=== PATIENT | male | born 1960 | race Caucasian/White ===

== ENCOUNTER 2016-11-13 05:54 | Day surgery (SDC) | payer BC ==
[2016-11-10 09:14] VITALS: BMI 32.6
[~2016-11-13 05:54] MED LIST: LACTATED RINGERS 1,000 ML IV SCH; LIDOCAINE 1% 20 ML VIAL (10MG/ML) FOR IV START INTRADERMA PRN; SODIUM CHLORIDE 0.9% 1,000 ML IV SCH
[2016-11-13 06:23] VITALS: TEMP 97.8
[2016-11-13 06:30] LABS: Glucose,Whole Blood 151 mg/dL (75-99)
[2016-11-13 06:57] LABS: INR 2.6 (<1.1); Prothrombin Time 25.5 sec (9.0-12.0)
[2016-11-13 07:04] LABS: Anion Gap 11 mmol/L; Blood Urea Nitrogen 17 mg/dL (9-20); Calcium 9.8 mg/dL (8.4-10.2); Carbon Dioxide 22 mmol/L (22-30); Chloride 110 mmol/L (98-107); Glucose 152 mg/dL (74-99); Non-African American GFR(MDRD) >60 (>60 ml/min/1.73 sqM); Potassium 4.3 mmol/L (3.5-5.1); Sodium 143 mmol/L (137-145)
[2016-11-13 07:15] VITALS: RESP 16
[2016-11-13] MEDS ORDERED: KETOROLAC 30 MG/ML 1 ML VIAL ONE (07:20)
[2016-11-13] MEDS ORDERED: PROPOFOL 10 MG/ML 20 ML VIAL IV ONE (07:20)
[2016-11-13] MEDS ORDERED: LIDOCAINE 1% INJ 10MG/ML (20 ML MDV) ONE (07:20)
[2016-11-13] MEDS ORDERED: SODIUM CHLORIDE 0.9% 1,000 ML IV SCH (07:45)
[2016-11-13] MEDS ORDERED: NON-FORMULARY DRUG (Omega-3 Fatty Acids/Fish Oil [Fish Oil 1,000 Mg Softgel] 1 EACH) PO SCH (07:45)
[2016-11-13] MEDS ORDERED: SODIUM CHLORIDE 0.9% 500 ML IV ONE (07:47)
[2016-11-13] MEDS ORDERED: SODIUM CHLORIDE 0.9% 1,000 ML IV ONE (07:59)
[2016-11-13 08:10] VITALS: PULSE 65
--- NOTE | 2016-11-13 08:29 | ECHOT ---
DATE OF SERVICE: INDICATION: Evaluation of left atrial appendage. PROCEDURE: After explaining the procedure to the patient as well as risks and complications, his blood pressure, heart rate, O2 saturation was monitored. The throat was sprayed with Cetacaine. He received sedation per Anesthesia Department. The probe was introduced into the esophagus without difficulty. There was no immediate complication. FINDINGS: The left atrial size is mildly dilated. The left atrial appendage is normal. Left ventricular size is normal. There is evidence of global hypokinesis. The estimated ejection fraction is 35% to 40% with global hypokinesis. The aortic valve, mitral valve and tricuspid valve are normal. Descending thoracic aorta appears to be normal. There was no pericardial effusion. Contrast bubble study revealed no evidence of shunting across the interatrial septum. Doppler pulse wave obtained and revealed a mild to moderate mitral and tricuspid regurgitation. There was no shunting by color Doppler study. CONCLUSION: 1. Mildly dilated left atrium with normal appearance of left atrial appendage. 2. Normal left ventricular size was severe global hypokinesis. 3. Mild to moderate mitral and tricuspid regurgitation. 4. No shunting across the interatrial septum.
[2016-11-13] MEDS ORDERED: LISINOPRIL 20 MG TAB PO SCH (09:00)
[2016-11-13] MEDS ORDERED: METOPROLOL TARTRATE 25 MG TAB PO SCH (09:00)
[2016-11-13] MEDS ORDERED: ATORVASTATIN 10 MG TAB PO SCH (09:00)
[2016-11-13] MEDS ORDERED: ASPIRIN 81 MG CHEW PO SCH (09:00)
[2016-11-13] MEDS ORDERED: metFORMIN 500 MG TAB PO SCH (09:00)
[2016-11-13] MEDS ORDERED: amLODIPine 5 MG TAB PO SCH (09:00)
[2016-11-13 09:42] VITALS: BP 148/78
--- NOTE | 2016-11-13 10:27 | CE ---
DATE OF SERVICE: PROCEDURE: After explaining the procedure to the patient as well as risks and complications and after obtaining sedation state per Anesthesia Department, performed transesophageal echogram and cardioversion using 200 synchronized biphasic joules. Cardioversion was performed with episcopal of normal sinus rhythm. There was no immediate complication.
[2016-11-13] MEDS ORDERED: WARFARIN 7.5 MG TAB PO SCH (18:00)
[2016-11-14] MEDS ORDERED: ASCORBIC ACID 500 MG TAB PO SCH (12:00)
[2016-11-14] MEDS ORDERED: MULTIVITAMINS, THERA 1 EACH TAB PO SCH (12:00)
== END 2016-11-13 09:15 | disposition home or self-care (01) ==
LOC: CATHCVL 05:54
PROVIDERS: ATTEND Internal Medicine Interventional Cardiology
DX: I25.10 Atherosclerotic heart disease of native coronary artery without angina pectoris (principal); I48.1 Persistent atrial fibrillation; I10 Essential (primary) hypertension; I25.5 Ischemic cardiomyopathy; E78.2 Mixed hyperlipidemia; E11.9 Type 2 diabetes mellitus without complications; I34.0 Nonrheumatic mitral (valve) insufficiency; I36.1 Nonrheumatic tricuspid (valve) insufficiency; Z79.01 Long term (current) use of anticoagulants; Z79.84 Long term (current) use of oral hypoglycemic drugs; Z79.82 Long term (current) use of aspirin; Z79.899 Other long term (current) drug therapy; Z95.5 Presence of coronary angioplasty implant and graft; Z82.49 Family history of ischemic heart disease and other diseases of the circulatory system
CPT/HCPCS: 93312; 93320; 93005; 93325; 92960; 80048; 85610; J2001; J1885; J2704

== ENCOUNTER → 2017-09-25 | Outpatient (CLI) | payer BC ==
--- NOTE | 2017-09-25 15:29 | CONS ---
CONSULTATION REASON FOR EVALUATION: Atrial fibrillation, possible DALTON. 57-year-old male patient, referred to me for DALTON evaluation. The patient is having episodes with issues with paroxysmal atrial fibrillation. The patient has had a few episodes and he has required cardioversion and he is currently in sinus rhythm. As part of his workup, sleep apnea was also considered. He snores and occasionally quits breathing. However, he denies having any significant hypersomnia or sleepiness during the day. He has been told to snore and quit breathing by his . He goes to bed around 10:30 pm, wakes up 6:30 am in the morning. He feels refreshed. His current Protem score is a 5. Weight has been stable at 235 pounds. No alcoholism and drinks 1-3 glasses of wine at nighttime. No other complaints otherwise. PAST MEDICAL HISTORY: 1. Paroxysmal atrial fibrillation. 2. Hypertension. 3. Hyperlipidemia. PAST SURGICAL HISTORY: Includes cardioversion, cardiac catheterization and insertion of coronary stent. DRUG ALLERGIES: Not known. OUTPATIENT MEDICATION LIST: Includes metformin 1000 mg daily, Coumadin 5 mg p.o. daily, aspirin 81 mg p.o. daily, metoprolol 25 mg p.o. daily, lisinopril 20 mg p.o. daily, amlodipine 5 mg p.o. per day, Lipitor 10 mg p.o. daily. SOCIAL HISTORY: The patient is a nonsmoker. No history of alcohol. No history of IV drugs. 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 FAMILY HISTORY: Negative for sleep apnea. REVIEW OF SYSTEMS: 12-point review of system was done. The patient denies having excessive fatigue or sleepiness. No insomnia. No choking. No nocturia. No grinding of the teeth. No dry mouth. No anxiety or panic attacks. No palpitations. No heartburn. No depression. No sweating. No sleep talking. No restlessness lower extremities. No chronic pain. He sleeps on a sidewise body position. He does not watch a TV in his bedroom. He does not take naps on a regular basis. Sometimes takes a nap between 530-630 p.m. at night. His weight has been stable. He has never been involved in a motor vehicle accidents because of feeling sleepy or drowsy. PHYSICAL EXAMINATION: BP is 142/80, pulse 61, respirations 16, temperature 97.3, saturation 98% on room air. Weight is 235, height is 5 feet 10 inches and Protem score of 5. Neck size 18 inches. BMI 33.7. GENERAL APPEARANCE: Calm, comfortable. HEENT is atraumatic, normocephalic. NECK: Supple. There is no JVD. No goiter or neck masses. Slight overbite with Mallampati class III. LUNGS: Clear to auscultation. HEART: Sounds are regular rate and rhythm. Normal S1, S2. No S3, S4. No murmurs. ABDOMEN: Soft and nontender. EXTREMITIES: No edema. No cyanosis or clubbing. NEUROLOGICALLY: The patient is alert and oriented x3. There is no focal neurological deficits. PSYCHIATRICALLY: The patient has appropriate mood and affect. SKIN: Negative for any wounds or cellulitis. IMPRESSION: 1. Paroxysmal atrial fibrillation currently in normal sinus rhythm. 2. Snoring with occasional witnessed apneas rule out underlying obstructive sleep apnea. Although the clinical suspicion is low based on his overall symptomatology. 3. Coronary artery disease. 4. Hypertension. 5. Hyperlipidemia. 6. BMI 33.7. PLAN: 1. Encourage weight loss. 2. Proceed with a sleep study looking for any significant sleep breathing disorder contributing to his atrial fibrillation and based on that, we will make further recommendations if treatment is needed. MMODL / IJN: [id number] /
== END | disposition home or self-care (01) ==
LOC: SLEEP 12:37
PROVIDERS: ATTEND Internal Medicine Critical Care Medicine
DX: R06.83 Snoring (principal); I48.0 Paroxysmal atrial fibrillation; I25.10 Atherosclerotic heart disease of native coronary artery without angina pectoris; I10 Essential (primary) hypertension; E78.5 Hyperlipidemia, unspecified; Z95.5 Presence of coronary angioplasty implant and graft; Z79.1 Long term (current) use of non-steroidal anti-inflammatories (NSAID); Z79.82 Long term (current) use of aspirin; Z79.84 Long term (current) use of oral hypoglycemic drugs; Z79.899 Other long term (current) drug therapy; Z88.8 Allergy status to other drugs, medicaments and biological substances
CPT/HCPCS: 99211

== ENCOUNTER → 2018-11-25 | Outpatient (CLI) | payer BC ==
--- NOTE | 2018-11-25 09:50 | US ---
EXAMINATION TYPE: US kidneys/renal and bladder DATE OF EXAM: 11/25/2018 COMPARISON: NONE CLINICAL HISTORY: N13.30 Unspecified hydronephrosis,R93.4 History of hydraneph. Hx of renal stones wi th breakage per patient. No current pain. EXAM MEASUREMENTS: Right Kidney: 11.4 x 5.7 x 6.0 cm Left Kidney: 12.9 x 5.4 x 6.0 cm Right Kidney: No hydronephrosis or masses seen, prominent column of trixie Left Kidney: No hydronephrosis or masses seen Bladder: Incompletely distended Bilateral Jets not seen There is no evidence for hydronephrosis at this point in time. No nephrolithiasis is seen. No lacie s are identified. The urinary bladder is anechoic. Bilateral ureteral jets are not centimeter seen. IMPRESSION: No hydronephrosis or nephrolithiasis.
== END | disposition home or self-care (01) ==
LOC: RADUSWWP 08:58
PROVIDERS: ATTEND Urology
DX: Z09 Encounter for follow-up examination after completed treatment for conditions other than malignant neoplasm (principal); Z87.448 Personal history of other diseases of urinary system
CPT/HCPCS: 76770

== ENCOUNTER 2022-02-20 10:03 | Inpatient (IN) | payer BC ==
[2022-02-20] MEDS ORDERED: SODIUM CHLORIDE 0.9% 1,000 ML IV STA (10:20)
[2022-02-20] MEDS ORDERED: ACETAMINOPHEN TAB 325 MG TAB PO STA (10:20)
[2022-02-20] MEDS ORDERED: ONDANSETRON 4 MG/2 ML VIAL IVP STA (10:21)
--- NOTE | 2022-02-20 10:24 | ED ---
General Adult HPI - General Chief complaint: Fever Stated complaint: kidney stones,fever Time Seen by Provider: 02/20/22 10:15 Source: patient, family, RN notes reviewed, old records reviewed Mode of arrival: ambulatory Limitations: no limitations - History of Present Illness Initial comments: This is a well-appearing 61-year-old male that presents to the emergency room with family complaining of left flank pain, fever and nausea after being diagnosed with a 7 mm kidney stone at [facility] in [place]. States he had a CT scan done there and was given norco and flomax and was instructed to follow-up with Dr. Crabtree but could not get in today. He called the office due to fever for the past 2 days was recommended to come to the emergency room. -: days(s) (4) Location: left (flank) Associated Symptoms: fever/chills, nausea/vomiting (no vomiting) Treatments Prior to Arrival: other (tylenol 5am) - Related Data Home Medications Medication Instructions Recorded Confirmed amLODIPine [Norvasc] 5 mg PO DAILY 11/10/16 02/20/22 lisinopriL [Zestril] 20 mg PO DAILY 11/10/16 02/20/22 Atorvastatin [Lipitor] 80 mg PO HS 02/20/22 02/20/22 HYDROcodone/APAP 5-325MG [[place] 1 tab PO Q8H PRN 02/20/22 02/20/22 5-325] Eleno's Leg Cramps 1 tab PO HS 02/20/22 02/20/22 Ketorolac Tromethamine 10 mg PO Q8H PRN 02/20/22 02/20/22 Metoprolol Tartrate [Lopressor] 50 mg PO BID 02/20/22 02/20/22 Tamsulosin [Flomax] 0.4 mg PO DAILY 02/20/22 02/20/22 Warfarin Sodium 6 mg PO DAILY 02/20/22 02/20/22 Warfarin [Coumadin] 1 mg PO DAILY 02/20/22 02/20/22 metFORMIN HCL 1,000 mg PO BID 02/20/22 02/20/22 Allergies Allergy/AdvReac Type Severity Reaction Status Date / Time No Known Allergies Allergy Verified 02/20/22 12:49 Review of Systems ROS Statement: Those systems with pertinent positive or pertinent negative responses have been documented in the HPI. ROS Other: All systems not noted in ROS Statement are negative. Past Medical History Past Medical History: Atrial Fibrillation, Coronary Artery Disease (CAD), Diabetes Mellitus, Hypertension, Osteoarthritis (OA) Additional Past Medical History / Comment(s): kidney stones History of Any Multi-Drug Resistant Organisms: None Reported Past Surgical History: Heart Catheterization With Stent Additional Past Surgical History / Comment(s): Colonoscopy Past Anesthesia/Blood Transfusion Reactions: No Reported Reaction Date of Last Stent Placement:: 2012 Past Psychological History: No Psychological Hx Reported Smoking Status: Former smoker Past Alcohol Use History: Occasional Past Drug Use History: None Reported - Past Family History Mother Family Medical History: No Reported History Father Family Medical History: Coronary Artery Disease (CAD) General Exam Limitations: no limitations General appearance: alert, in no apparent distress Head exam: Present: atraumatic Eye exam: Present: normal appearance. Absent: scleral icterus, conjunctival injection Neck exam: Present: normal inspection. Absent: tenderness, meningismus, lymphad enopathy Respiratory exam: Present: normal lung sounds bilaterally. Absent: respiratory distress, accessory muscle use Cardiovascular Exam: Present: tachycardia GI/Abdominal exam: Present: soft. Absent: distended, tenderness, guarding, rebound, rigid exam: Present: normal inspection, vertical testicular lie, circumcision. Absent: testicular tenderness, urethral discharge, scrotal swelling External exam: Absent: erythema, swelling, lesions Extremities exam: Present: normal capillary refill. Absent: pedal edema Back exam: Present: normal inspection, full ROM. Absent: tenderness, CVA tenderness (R), CVA tenderness (L), rash noted Neurological exam: Present: alert, oriented X3 Skin exam: Present: warm, dry, normal color. Absent: cyanosis, diaphoretic, petechiae, pallor Course Vital Signs 02/20/22 02/20/22 10:10 12:22 Temperature 101.8 F H 99.8 F H Pulse Rate 105 H 100 Respiratory 18 Rate Blood Pressure 155/77 O2 Sat by Pulse 96 Oximetry Medical Decision Making - Medical Decision Making Ultrasound of the kidneys and bladder show left-sided hydronephrosis. No stone seen. Patient is febrile with leukocytosis. Sodium is 129, he was given IV fluids. BUN and creatinine elevated. KUB x-ray shows no evidence of renal calculus. There is a nonspecific bowel gas pattern with no evidence of acute process or obstruction. Fecal matter and gas throughout the colon with nonspecific dilated bowel loops. Patient will be admitted with pyelonephritis, hydronephrosis, and acute kidney injury. Did speak with Dr. Crabtree who recommends CT and patient be admitted to medicine with him on consult. Patient agreeable to this plan. is also requesting he be tested for coronavirus, states that he has altered sense of smell for the past 10 days. Case discussed with Dr. Allan - Lab Data Result diagrams: 02/20/22 10:26 02/20/22 10:26 Lab Results 02/20/22 02/20/22 02/20/22 Range/Units 10:26 10: 10:26 WBC 15.5 H (3.8-10.6) k/uL RBC 4.59 (4.30-5.90) m/uL Hgb 14.6 (13.0-17.5) gm/dL Hct 42.5 (39.0-53.0) % MCV 92.6 (80.0-100.0) fL MCH 31.8 (25.0-35.0) pg MCHC 34.3 (31.0-37.0) g/dL RDW 12.5 (11.5-15.5) % Plt Count 115 L (150-450) k/uL MPV 9.1 Neutrophils % 91 % Lymphocytes % 2 % Monocytes % 6 % Eosinophils % 0 % Basophils % 0 % Neutrophils # 14.0 H (1.3-7.7) k/uL Lymphocytes # 0.2 L (1.0-4.8) k/uL Monocytes # 0.9 (0-1.0) k/uL Eosinophils # 0.1 (0-0.7) k/uL Basophils # 0.0 (0-0.2) k/uL Sodium 129 L (137-145) mmol/L Potassium 4.1 (3.5-5.1) mmol/L Chloride 95 L (98-107) mmol/L Carbon Dioxide 21 L (22-30) mmol/L Anion Gap 13 mmol/L BUN 26 H (9-20) mg/dL Creatinine 1.62 H (0.66-1.25) mg/dL Est GFR (CKD-EPI)AfAm 51 (>60 ml/min/1.73 sqM) Est GFR (CKD-EPI)NonAf 45 (>60 ml/min/1.73 sqM) Glucose 298 H (74-99) mg/dL Plasma Lactic Acid Dave (0.7-2.0) mmol/L Calcium 8.4 (8.4-10.2) mg/dL Total Bilirubin 1.2 (0.2-1.3) mg/dL AST 19 (17-59) U/L ALT 21 (4-49) U/L Alkaline Phosphatase 93 (38-126) U/L Total Protein 6.6 (6.3-8.2) g/dL Albumin 4.1 (3.5-5.0) g/dL Urine Color Yellow Urine Appearance Clear (Clear) Urine pH 5.5 (5.0-8.0) Ur Specific [place] 1.030 (1.001-1.035) Urine Protein 1+ H (Negative) Urine Glucose (UA) 4+ H (Negative) Urine Ketones 1+ H (Negative) Urine Blood Small H (Negative) Urine Nitrite Negative (Negative) Urine Bilirubin Negative (Negative) Urine Urobilinogen <2.0 (<2.0) mg/dL Ur Leukocyte Esterase Negative (Negative) Urine RBC 2 (0-5) /hpf Urine WBC 5 (0-5) /hpf Urine Mucus Rare H (None) /hpf 02/20/22 Range/Units 10:35 WBC (3.8-10.6) k/uL RBC (4.30-5.90) m/uL Hgb (13.0-17.5) gm/dL Hct (39.0-53.0) % MCV (80.0-100.0) fL MCH (25.0-35.0) pg MCHC (31.0-37.0) g/dL RDW (11.5-15.5) % Plt Count (150-450) k/uL MPV Neutrophils % % Lymphocytes % % Monocytes % % Eosinophils % % Basophils % % Neutrophils # (1.3-7.7) k/uL Lymphocytes # (1.0-4.8) k/uL Monocytes # (0-1.0) k/uL Eosinophils # (0-0.7) k/uL Basophils # (0-0.2) k/uL Sodium (137-145) mmol/L Potassium (3.5-5.1) mmol/L Chloride (98-107) mmol/L Carbon Dioxide (22-30) mmol/L Anion Gap mmol/L BUN (9-20) mg/dL Creatinine (0.66-1.25) mg/dL Est GFR (CKD-EPI)AfAm (>60 ml/min/1.73 sqM) Est GFR (CKD-EPI)NonAf (>60 ml/min/1.73 sqM) Glucose (74-99) mg/dL Plasma Lactic Acid Dave 1.5 (0.7-2.0) mmol/L Calcium (8.4-10.2) mg/dL Total Bilirubin (0.2-1.3) mg/dL AST (17-59) U/L ALT (4-49) U/L Alkaline Phosphatase (38-126) U/L Total Protein (6.3-8.2) g/dL Albumin (3.5-5.0) g/dL Urine Color Urine Appearance (Clear) Urine pH (5.0-8.0) Ur Specific [place] (1.001-1.035) Urine Protein (Negative) Urine Glucose (UA) (Negative) Urine Ketones (Negative) Urine Blood (Negative) Urine Nitrite (Negative) Urine Bilirubin (Negative) Urine Urobilinogen (<2.0) mg/dL Ur Leukocyte Esterase (Negative) Urine RBC (0-5) /hpf Urine WBC (0-5) /hpf Urine Mucus (None) /hpf Disposition Clinical Impression: JORGE L (acute kidney injury), Hydronephrosis, Pyelonephritis of left kidney Disposition: ADMITTED IP TO THIS HOSP Condition: Good Decision Date: 02/20/22 Decision Time: 12:06
[2022-02-20] MEDS ORDERED: cefTRIAXone IN SWFI 1,000 MG/10 ML SYRINGE IVP STA (10:32)
[2022-02-20 10:50] LABS: Appearance,Urine Clear (Clear); Bilirubin,Urine Negative (Negative); Blood,Urine Small (Negative); Color,Urine Yellow; Glucose,Urine (UA) 4+ (Negative); Ketones,Urine 1+ (Negative); Leukocyte Esterase,Urine Negative (Negative); Mucus,Urine Rare /hpf; Nitrite,Urine Negative (Negative); PH, Urine 5.5 (5.0-8.0); Protein,Urine 1+ (Negative); RBC,Urine 2 /hpf (0-5); Urobilinogen,Urine <2.0 mg/dL (<2.0); WBC,Urine 5 /hpf (0-5)
--- NOTE | 2022-02-20 11:06 | US ---
EXAMINATION TYPE: US kidneys/renal and bladder DATE OF EXAM: 02/20/2022 COMPARISON: Ultrasound 11/25/2018 CLINICAL HISTORY: Obstructive kidney stone left. known left renal stone, gross hematuria last week, p ain stopped this weekend but fever started today EXAM MEASUREMENTS: Right Kidney: 13.4 x 5.1 x 6.3 cm Left Kidney: 13.9 x 5.9 x 7.0 cm Right Kidney: No hydronephrosis or masses seen, larger in size Left Kidney: hydronephrosis seen, stone was not seen during scan, large in size Bladder: not distended IMPRESSION: 1. Left hydronephrosis 2. No evidence of right-sided hydronephrosis.
[2022-02-20 11:07] LABS: Basophils % (A) 0 %; Eosinophils # (A) 0.1 k/uL (0-0.7); Eosinophils % (A) 0 %; HCT 42.5 % (39.0-53.0); HGB 14.6 gm/dL (13.0-17.5); Lymphocytes # (A) 0.2 k/uL (1.0-4.8); Lymphocytes % (A) 2 %; MCH 31.8 pg (25.0-35.0); MCHC 34.3 g/dL (31.0-37.0); MCV 92.6 fL (80.0-100.0); Mean Platelet Volume 9.1; Monocytes # (A) 0.9 k/uL (0-1.0); Monocytes % (A) 6 %; Neutrophils % (A) 91 %; Platelet Count 115 k/uL (150-450); RBC 4.59 m/uL (4.30-5.90); RDW 12.5 % (11.5-15.5); WBC 15.5 k/uL (3.8-10.6)
[2022-02-20 11:14] LABS: Albumin 4.1 g/dL (3.5-5.0); Calcium 8.4 mg/dL (8.4-10.2); Potassium 4.1 mmol/L (3.5-5.1); Total Bilirubin 1.2 mg/dL (0.2-1.3); Total Protein 6.6 g/dL (6.3-8.2)
--- NOTE | 2022-02-20 12:07 | XR ---
EXAMINATION TYPE: XR KUB DATE OF EXAM: 02/20/2022 11:59 AM INDICATION: Patient age:Male; 61 years old; Reason for study: kidney stone; [facility]. COMPARISON: None TECHNIQUE: One radiographic view of the abdomen was obtained. FINDINGS: The bowel gas pattern is nonspecific without dilated loops of small or large bowel. There i s no evidence for organomegaly or pneumoperitoneum. The osseous structures are intact. No abnormal calcifications are present. Fecal material and gas are demonstrated throughout the colon and rectum. IMPRESSION: 1. No evidence for renal calculus. 2. Nonspecific bowel gas pattern without radiographic evidence for acute process.
[2022-02-20] MEDS ORDERED: HYDROcodone/APAP 5-325MG 1 EACH TAB PO PRN (12:34)
[2022-02-20] MEDS ORDERED: NALOXONE 0.4 MG/ML 1 ML VIAL IV PRN (12:34)
[2022-02-20] MEDS: SODIUM CHLORIDE 0.9% 1,000 ML IV SCH ×2 (12:58→19:43)
[2022-02-20 14:11] LABS: INR 1.5 (<1.2); Prothrombin Time 15.1 sec (9.0-12.0)
--- NOTE | 2022-02-20 14:42 | CT ---
EXAMINATION TYPE: CT abdomen pelvis wo con DATE OF EXAM: 02/20/2022 COMPARISON: None HISTORY: Kidney stones, fever CT DLP: 841.4 mGycm Examination of the solid and hollow viscera is limited given the lack of contrast. FINDINGS: LUNG BASES: No evidence for nodule. No evidence for infiltrate. LIVER/GB: The gallbladder is unremarkable. No space-occupying hepatic lesion. PANCREAS: No pancreatic mass identified. No inflammatory process seen. SPLEEN: No evidence for splenomegaly. No intrasplenic lesions seen. ADRENALS: No adrenal nodules identified. No evidence for thickening. KIDNEYS: Moderate left-sided hydroureteronephrosis secondary to a 4.5 mm left ureteral calculus at th e left mid sacral level. Mild left renal edema and perinephric stranding. Underlying infection is dif ficult to exclude. 3 mm nonobstructing calculus mid to lower pole right kidney. BOWEL: Appendix has a normal appearance. No evidence of bowel obstruction. No inflammatory process. M oderate sigmoid diverticulosis without diverticulitis. Lymph nodes: No evidence for adenopathy greater than 1 cm. Abdominal aorta: Atheromatous changes seen. No evidence for aneurysm. Genital organs: No significant abnormality. Other: No significant abnormality. IMPRESSION: Moderate left-sided hydroureteronephrosis secondary to a 4.5 mm left ureteral calculus at the left mi d sacral level. Mild left renal edema and perinephric stranding. Underlying infection is difficult to exclude.
[2022-02-20 16:19] LABS: Glucose,Whole Blood 204 mg/dL (70-110)
[2022-02-20] MEDS ORDERED: LACTATED RINGERS 1,000 ML IV ONE (16:19)
[2022-02-20] MEDS ORDERED: fentaNYL (PF) 50 MCG/ML 2 ML AMP ONE (16:24)
[2022-02-20] MEDS ORDERED: MIDAZOLAM 2 MG/2 ML VIAL ONE (16:24)
[2022-02-20] MEDS ORDERED: LIDOCAINE 2% INJ 20 MG/ML (2 ML VIAL) ONE (16:24)
[2022-02-20] MEDS ORDERED: PROPOFOL 10 MG/ML 20 ML VIAL IV ONE (16:24)
[2022-02-20] MEDS ORDERED: SUCCINYLCHOLINE CHLORIDE 200 MG/10 ML VIAL IV ONE (16:24)
--- NOTE | 2022-02-20 16:29 | P.GSCN ---
History of Present Illness Consult date: 02/20/22 History of present illness: 61 yo male with a history of stones. Was in [facility] er with an apparent 7 mm left ureteral stone. He was discharged back tp PH He has had fever. He wonders whether he has COVID. His urine doesnt look infected but he is febrile. He is admitted for IVF , ab and gu consultation. He had an us that showed hydro but the kub didnt show a distinct stone. I ordered a ct scan which showed a 7 mm distal obstructing stone. Review of Systems All systems: negative - Constitutional Denies fever, Denies weight loss - EENT Eyes: denies blurred vision Ears, nose, mouth and throat: Denies dysphagia - Cardiovascular Denies chest pain, Denies shortness of breath - Respiratory Denies cough, Denies 7 - Gastrointestinal Reports as per HPI - Genitourinary Denies dysuria, Denies hematuria - Integumentary Denies rash, Denies unusual bruising - Neurological Denies headaches, Denies syncope - Hematologic/Lymphatic Denies easy bleeding, Denies easy bruising Past Medical History Past Medical History: Atrial Fibrillation, Coronary Artery Disease (CAD), Diabetes Mellitus, Hypertension, Osteoarthritis (OA) Additional Past Medical History / Comment(s): kidney stones History of Any Multi-Drug Resistant Organisms: None Reported Past Surgical History: Heart Catheterization With Stent Additional Past Surgical History / Comment(s): Colonoscopy Past Anesthesia/Blood Transfusion Reactions: No Reported Reaction Date of Last Stent Placement:: 2012 Past Psychological History: No Psychological Hx Reported Smoking Status: Former smoker Past Alcohol Use History: Occasional Past Drug Use History: None Reported - Past Family History Mother Family Medical History: No Reported History Father Family Medical History: Coronary Artery Disease (CAD) Medications and Allergies Home Medications Medication Instructions Recorded Confirmed Type amLODIPine [Norvasc] 5 mg PO DAILY 11/10/16 02/20/22 History lisinopriL [Zestril] 20 mg PO DAILY 11/10/16 02/20/22 History Atorvastatin [Lipitor] 80 mg PO HS 02/20/22 02/20/22 History HYDROcodone/APAP 5-325MG [[place] 1 tab PO Q8H PRN 02/20/22 02/20/22 History 5-325] Eleno's Leg Cramps 1 tab PO HS 02/20/22 02/20/22 History Ketorolac Tromethamine 10 mg PO Q8H PRN 02/20/22 02/20/22 History Metoprolol Tartrate [Lopressor] 50 mg PO BID 02/20/22 02/20/22 History Tamsulosin [Flomax] 0.4 mg PO DAILY 02/20/22 02/20/22 History Warfarin Sodium 6 mg PO DAILY 02/20/22 02/20/22 History Warfarin [Coumadin] 1 mg PO DAILY 02/20/22 02/20/22 History metFORMIN HCL 1,000 mg PO BID 02/20/22 02/20/22 History Allergies Allergy/AdvReac Type Severity Reaction Status Date / Time No Known Allergies Allergy Verified 02/20/22 12:49 Surgical - Exam Vital Signs Temp Pulse Resp BP Pulse Ox 101.8 F H 105 H 18 155/77 96 02/20/22 10:10 02/20/22 10:10 02/20/22 10:10 02/20/22 10:10 02/20/22 10:10 - General well developed, well nourished, moderate distress - Eyes PERRL - ENT no hearing loss - Neck trachea midline - Respiratory normal expansion, normal respiratory effort - Cardiovascular tachycardic Rhythm: regular - Abdomen Abdomen: soft, non tender - Genitourinary normal penis with no external lesions, testicles present - Integumentary no rash, no growths - Neurologic normal sensation - Musculoskeletal normal posture - Psychiatric oriented to time, oriented to person, oriented to place, speech is normal, me roman intact Results - Labs 02/20/22 10:26 02/20/22 10:26 Abnormal Lab Results - Last 24 Hours (Table) 02/20/22 02/20/22 02/20/22 Range/Units 10:26 10:26 10:26 WBC 15.5 H (3.8-10.6) k/uL Plt Count 115 L (150-450) k/uL Neutrophils # 14.0 H (1.3-7.7) k/uL Lymphocytes # 0.2 L (1.0-4.8) k/uL Sodium 129 L (137-145) mmol/L Chloride 95 L (98-107) mmol/L Carbon Dioxide 21 L (22-30) mmol/L BUN 26 H (9-20) mg/dL Creatinine 1.62 H (0.66-1.25) mg/dL Glucose 298 H (74-99) mg/dL Urine Protein 1+ H (Negative) Urine Glucose (UA) 4+ H (Negative) Urine Ketones 1+ H (Negative) Urine Blood Small H (Negative) Urine Mucus Rare H (None) /hpf Diabetes panel 02/20/22 Range/Units 10:26 Sodium 129 L (137-145) mmol/L Potassium 4.1 (3.5-5.1) mmol/L Chloride 95 L (98-107) mmol/L Carbon Dioxide 21 L (22-30) mmol/L BUN 26 H (9-20) mg/dL Creatinine 1.62 H (0.66-1.25) mg/dL Glucose 298 H (74-99) mg/dL Calcium 8.4 (8.4-10.2) mg/dL AST 19 (17-59) U/L ALT 21 (4-49) U/L Alkaline Phosphatase 93 (38-126) U/L Total Protein 6.6 (6.3-8.2) g/dL Albumin 4.1 (3.5-5.0) g/dL Calcium panel 02/20/22 Range/Units 10:26 Calcium 8.4 (8.4-10.2) mg/dL Albumin 4.1 (3.5-5.0) g/dL Pituitary panel 02/20/22 Range/Units 10:26 Sodium 129 L (137-145) mmol/L Potassium 4.1 (3.5-5.1) mmol/L Chloride 95 L (98-107) mmol/L Carbon Dioxide 21 L (22-30) mmol/L BUN 26 H (9-20) mg/dL Creatinine 1.62 H (0.66-1.25) mg/dL Glucose 298 H (74-99) mg/dL Calcium 8.4 (8.4-10.2) mg/dL Adrenal panel 02/20/22 Range/Units 10:26 Sodium 129 L (137-145) mmol/L Potassium 4.1 (3.5-5.1) mmol/L Chloride 95 L (98-107) mmol/L Carbon Dioxide 21 L (22-30) mmol/L BUN 26 H (9-20) mg/dL Creatinine 1.62 H (0.66-1.25) mg/dL Glucose 298 H (74-99) mg/dL Calcium 8.4 (8.4-10.2) mg/dL Total Bilirubin 1.2 (0.2-1.3) mg/dL AST 19 (17-59) U/L ALT 21 (4-49) U/L Alkaline Phosphatase 93 (38-126) U/L Total Protein 6.6 (6.3-8.2) g/dL Albumin 4.1 (3.5-5.0) g/dL - Imaging Abdominal x-ray: report reviewed, image reviewed CT scan - abdomen: report reviewed, image reviewed CT scan - pelvis: report reviewed, image reviewed US - abdomen: report reviewed, image reviewed US - kidney/bladder: report reviewed, image reviewed Assessment and Plan Assessment: Impression: left ureteral stone with obstruction, sepsis with pyonephrosis. Plan: cysto with stent placement.
--- NOTE | 2022-02-20 17:03 | P.OP ---
Date of Procedure: 02/20/22 Preoperative Diagnosis: Left ureteral calculus with obstruction, urinary tract infection with sepsis, pyonephrosis left Postoperative Diagnosis: Same Procedure(s) Performed: Cystoscopy with placement of 6 x 26 double-J catheter left Anesthesia: ANGELIA Surgeon: Adi Crabtree Estimated Blood Loss (ml): 0 Pathology: none sent Disposition: PACU Indications for Procedure: The patient is 61. He obstructed a ureteral stone a couple days ago. He has had fever and chills for the last couple days. He came emergency room. He is found to have an elevated white count of 15,000. Temperature of 1018. Computed tomography scan identified a 7 mm meter distal ureteral obstructing stone. He comes for stent to relieve the obstruction and pyonephrosis left Description of Procedure: Patient brought to the operating suite. Given general anesthesia. He's placed lithotomy position with sterile prep and drape. The urethra is somewhat tight with the 23-Syrian scope therefore a 19-Syrian scope was passed into the urethra. There is a mild bulbar stricture which was dilated. I look into the bladder. There is some infection on the floor. The rest the bladder berumen unremarkable I reintroduced the 21-Syrian scope into the bladder. Through the scope an 035 wires passed up the left ureter into the kidney and by the distal left ureteral stone. Over the wire a 6 x 26 double pigtail catheters passed the coils in the renal pelvis and the bladder. Purulent urine emanates from the double-J catheter. The bladder strain the patient is awakened and returned recovery room in good condition. He tolerated procedure well be observed in the hospital postoperatively. Secondarily he will undergo a stone and stent removal
[2022-02-20] MEDS ORDERED: metFORMIN 500 MG TAB PO SCH (17:30)
[2022-02-20] MEDS ORDERED: WARFARIN 3 MG TAB PO ONE (18:00)
[2022-02-20] MEDS ORDERED: WARFARIN 1 MG TAB PO ONE (18:00)
[2022-02-20] MEDS ORDERED: ACETAMINOPHEN IV (For NPO) 1,000 MG/100 ML VIAL IVPB ONE (18:08)
[2022-02-20 19:14] LABS: Glucose,Whole Blood 208 mg/dL (70-110)
[2022-02-20] MEDS: ATORVASTATIN 80 MG TAB PO SCH (19:44)
[2022-02-20] MEDS: METOPROLOL TARTRATE 50 MG TAB PO SCH (19:44)
[2022-02-20] MEDS ORDERED: LACTULOSE 20 GM/30 ML CUP PO PRN (21:25)
[2022-02-20] MEDS ORDERED: TEMAZEPAM 15 MG CAP PO PRN (21:25)
[2022-02-20] MEDS ORDERED: LORazepam 0.5 MG TAB PO PRN (21:25)
[2022-02-20] MEDS ORDERED: CALCIUM CARBONATE 500 MG CHEWABLE PO PRN (21:25)
[2022-02-20] MEDS ORDERED: DEXTROSE 50% SYRINGE 50 ML IVP PRN ×2 (21:26)
--- NOTE | 2022-02-20 21:31 | P.HPIM ---
History of Present Illness H&P Date: 02/20/22 Chief Complaint: Flank pain This is a very pleasant 61-year-old patient follows with Dr. Hagan. Chronic stable medical conditions include CAD with stent, diabetes, hypertension, osteoarthritis, kidney stones, history of atrial fibrillation with ablation. Has continued on Coumadin. Patient was seen after he had his double-J stent placed today. at the bedside. 4 days ago patient started having left flank pain. Symptoms started getting worse. Or the weakness started having fever and chills. Decreased oral intake. Also some blood in the urine. Came in. Patient was diagnosed with a computed tomography scan with disseminated kidney stone admin clotted in [place]. He was discharged with [place] and Flomax. He was instructed to follow up with Dr. Quiroz. Symptoms persisted decided to come in here. He today had a double-J stent placement after Richie because of sepsis. Review of systems: GEN.: Fever and chills decreased appetite EYES: None HEENT: None NECK: None RESPIRATORY: None CARDIOVASCULAR: None GASTROINTESTINAL: None GENITOURINARY: As above MUSCULOSKELETAL: None LYMPHATICS: None HEMATOLOGICAL: None PSYCHIATRY: None NEUROLOGICAL: None Past medical history to include: Paroxysmal atrial fibrillation corrected with ablation. On Coumadin. CAD with stent, diabetes, hypertension, osteomyelitis, kidney stones Social history: Patient started smoking in 1975 DrClaudia 118 years ago. Normally has 2 alcoholic drinks a day. Patient takes [employer]. . Alcohol occasionally. Family history: Reviewed, noncontributory to presentation Physical examination: VITAL SIGNS: 103.1103, 24, 125-61, 93% on 4 L GENERAL: Average built, laying in bed, awake, tired. EYES: Pupils equal. Conjunctiva normal. HEENT: External appearance of nose and ears normal, oral cavity grossly normal. NECK: JVD not raised; masses not palpable. HEART: First and second heart sounds are normal; no edema. LUNGS: Respiratory rate normal; clear to auscultation. ABDOMEN: Soft, some left flank tenderness, liver spleen not palpable, no masses palpable. PSYCH: Alert and oriented x3; mood and affect normal. MUSCULOSKELETAL:No Clubbing/cyanosis;muscles-grossly intact NEUROLOGICAL: Cranial nerves grossly intact; no facial asymmetry, power and sensation grossly intact. LYMPHATICS: No lymph nodes palpable in the axilla and neck INVESTIGATIONS, reviewed in the clinical context: White count 15.5 hemoglobin 14.6 platelets 115 sodium 129 potassium 4.1 BUN 26 creatinine 1.6 to COVID 19: Not detected Computed tomography scan of the abdomen pelvis: Moderate left-sided high to hydronephrosis secondary to 4.5 mm left ureteral calculus at the left mid sacral level Assessment and plan: -Acute severe sepsis from obstructive by low nephritis IV ceftriaxone. IV fluids. - Moderate left-sided high to hydronephrosis secondary to 4.5 mm left ureteral calculus at the left mid sacral level February 20: Left double-J stent stent placed by Dr. Quiroz. -Acute severe obstructive pyelo nephritis IV ceftriaxone 1 g every 12 -Acute kidney injury from ATN from sepsis IV fluids. Follow renal function. Hold LAINE inhibitor -Paroxysmal atrial fibrillation. Prior history of ablation. Telemetry. On Coumadin -Coumadin monitoring Follow INR -CAD with a prior history of stent Lipitor -Essential hypertension Lopressor 50 mg twice a day, Norvasc 5 mg a day. Hold Zestril -Diabetes mellitus type 2, on oral hypoglycemic Hold metformin. Follow Accu-Cheks and sliding scale. Discussed with patient and . Had double-J stent placed. IV fluids. On metformin. IV ceftriaxone 1 g every 12. Follow renal function. Hold LAINE inhibitor. Telemetry. Resume other home medications. Accu-Cheks. Given the complexity and severity of patient's condition expect the patient to be in the hospital at least for 2 overnights Past Medical History Past Medical History: Atrial Fibrillation, Coronary Artery Disease (CAD), Diabetes Mellitus, Hypertension, Osteoarthritis (OA) Additional Past Medical History / Comment(s): kidney stones History of Any Multi-Drug Resistant Organisms: None Reported Past Surgical History: Heart Catheterization With Stent Additional Past Surgical History / Comment(s): Colonoscopy Past Anesthesia/Blood Transfusion Reactions: No Reported Reaction Date of Last Stent Placement:: 2012 Past Psychological History: No Psychological Hx Reported Smoking Status: Former smoker Past Alcohol Use History: Occasional Past Drug Use History: None Reported - Past Family History Mother Family Medical History: No Reported History Father Family Medical History: Coronary Artery Disease (CAD) Medications and Allergies Home Medications Medication Instructions Recorded Confirmed Type amLODIPine [Norvasc] 5 mg PO DAILY 11/10/16 02/20/22 History lisinopriL [Zestril] 20 mg PO DAILY 11/10/16 02/20/22 History Atorvastatin [Lipitor] 80 mg PO HS 02/20/22 02/20/22 History HYDROcodone/APAP 5-325MG [[place] 1 tab PO Q8H PRN 02/20/22 02/20/22 History 5-325] Eleno's Leg Cramps 1 tab PO HS 02/20/22 02/20/22 History Ketorolac Tromethamine 10 mg PO Q8H PRN 02/20/22 02/20/22 History Metoprolol Tartrate [Lopressor] 50 mg PO BID 02/20/22 02/20/22 History Tamsulosin [Flomax] 0.4 mg PO DAILY 02/20/22 02/20/22 History Warfarin Sodium 6 mg PO DAILY 02/20/22 02/20/22 History Warfarin [Coumadin] 1 mg PO DAILY 02/20/22 02/20/22 History metFORMIN HCL 1,000 mg PO BID 02/20/22 02/20/22 History Allergies Allergy/AdvReac Type Severity Reaction Status Date / Time No Known Allergies Allergy Verified 02/20/22 12:49 Physical Exam Vitals: Vital Signs Temp Pulse Pulse Pulse Resp BP BP 02/20/22 19:08 103.1 F H 103 H 24 125/61 02/20/22 18:51 99 20 114/56 02/20/22 18:30 91 22 149/67 02/20/22 18:15 91 26 H 167/72 02/20/22 18:04 93 26 H 161/74 02/20/22 17:46 97 26 H 156/70 02/20/22 17:38 101.5 F H 02/20/22 17:34 96 26 H 167/76 02/20/22 17:15 99 28 H 154/71 02/20/22 17:04 105.4 F H 103 H 30 H 140/63 02/20/22 16:19 100.5 F H 109 H 16 156/70 02/20/22 15:43 100.2 F H 118 H 22 02/20/22 12:22 99.8 F H 100 02/20/22 10:10 101.8 F H 105 H 18 155/77 Pulse Ox 02/20/22 19:08 93 L 02/20/22 18:51 93 L 02/20/22 18:30 98 02/20/22 18:15 98 02/20/22 18:04 98 02/20/22 17:46 98 02/20/22 17:38 02/20/22 17:34 98 02/20/22 17:15 98 02/20/22 17:04 98 02/20/22 16:19 95 02/20/22 15:43 96 02/20/22 12:22 02/20/22 10:10 96 Intake and Output 02/20/22 02/20/22 02/20/22 06:59 14:59 22:59 Intake Total 1700 Output Total 252 Balance 1448 Intake: IV 1700 Output: Urine 250 Estimated Blood Loss 2 Other: Weight 97.522 kg 97.522 kg Results CBC & Chem 7: 02/20/22 10:26 02/20/22 10:26 Labs: Abnormal Lab Results - Last 24 Hours (Table) 02/20/22 02/20/22 02/20/22 Range/Units 10:26 10:26 10:26 WBC 15.5 H (3.8-10.6) k/uL Plt Count 115 L (150-450) k/uL Neutrophils # 14.0 H (1.3-7.7) k/uL Lymphocytes # 0.2 L (1.0-4.8) k/uL PT (9.0-12.0) sec INR (<1.2) Sodium 129 L (137-145) mmol/L Chloride 95 L (98-107) mmol/L Carbon Dioxide 21 L (22-30) mmol/L BUN 26 H (9-20) mg/dL Creatinine 1.62 H (0.66-1.25) mg/dL Glucose 298 H (74-99) mg/dL POC Glucose (mg/dL) (70-110) mg/dL Urine Protein 1+ H (Negative) Urine Glucose (UA) 4+ H (Negative) Urine Ketones 1+ H (Negative) Urine Blood Small H (Negative) Urine Mucus Rare H (None) /hpf 02/20/22 02/20/22 02/20/22 Range/Units 13:43 16:17 19:12 WBC (3.8-10.6) k/uL Plt Count (150-450) k/uL Neutrophils # (1.3-7.7) k/uL Lymphocytes # (1.0-4.8) k/uL PT 15.1 H (9.0-12.0) sec INR 1.5 H (<1.2) Sodium (137-145) mmol/L Chloride (98-107) mmol/L Carbon Dioxide (22-30) mmol/L BUN (9-20) mg/dL Creatinine (0.66-1.25) mg/dL Glucose (74-99) mg/dL POC Glucose (mg/dL) 204 H 208 H (70-110) mg/dL Urine Protein (Negative) Urine Glucose (UA) (Negative) Urine Ketones (Negative) Urine Blood (Negative) Urine Mucus (None) /hpf Thrombosis Risk Factor Assmnt - Choose All That Apply Each Factor Represents 1 point: Minor surgery planned Other Risk Factors: Yes Each Risk Factor Represents 2 Points: Age 61-74 years Other congenital or acquired thrombophilia - If yes, enter type in comment: No Thrombosis Risk Factor Assessment Total Risk Factor Score: 3 Thrombosis Risk Factor Assessment Level: Moderate Risk
[2022-02-20] MEDS: ACETAMINOPHEN TAB 325 MG TAB PO PRN (22:51)
[2022-02-21] MEDS ORDERED: VANCOMYCIN IV PER PHARMACY 1 EACH MISC MISCELLANE PRN (03:09)
[2022-02-21] MEDS ORDERED: VANCOMYCIN 2,000 MG in SODIUM CHLORIDE 0.9% 500 ML 500 ML IVPB ONE (04:00)
[2022-02-21] MEDS ORDERED: VANCOMYCIN 2,000 MG in SODIUM CHLORIDE 0.9% 500 ML 500 ML IVPB SCH ×2 (04:00→10:00)
[2022-02-21] MEDS: SODIUM CHLORIDE 0.9% 1,000 ML IV SCH ×3 (04:35→17:41)
[2022-02-21] MEDS: ACETAMINOPHEN TAB 325 MG TAB PO PRN ×4 (04:51→22:59)
[2022-02-21 06:32] LABS: INR 1.5 (<1.2); Prothrombin Time 15.1 sec (9.0-12.0)
--- NOTE | 2022-02-21 06:47 | FL ---
Intraoperative/procedural fluoroscopic services were provided for left-sided stent placement. Total f luoroscopy time is 6 seconds with a total of 1 submitted image to PACS. Please see the operative note for further details.
[2022-02-21 07:12] LABS: Glucose,Whole Blood 209 mg/dL (70-110)
--- NOTE | 2022-02-21 08:14 | P.PN ---
Subjective Progress Note Date: 02/21/22 first post op day for a left ureteral stent placed for a left obstructing stone with pyonephrosis, uti w sepsis. He feels better. He is on antibiotic. He will still have fever for a couple of days. His vss. Objective - Vital Signs Vital signs: Vital Signs Temp 101.6 F H 02/21/22 07:40 Pulse 90 02/21/22 07:40 Resp 22 02/21/22 07:40 BP 109/54 02/21/22 07:40 Pulse Ox 96 02/21/22 07:40 FiO2 Intake & Output 02/20/22 02/21/22 02/21/22 18:59 06:59 18:59 Intake Total 1700 550 Output Total 252 Balance 1448 550 Weight 97.522 kg Intake: IV 1700 Intake, IV Titration 550 Amount Vancomycin 2,000 mg In 500 Sodium Chloride 0.9% 500 ml 500 ml @ 167 mls/hr IVPB ONCE ONE Rx#: [id number] cefTRIAXone 1 gm In 50 Sodium Chloride 0.9% 50 ml @ 100 mls/hr IVPB Q12HR [facility] [place] Rx#:[id number] Output: Urine 250 Estimated Blood Loss 2 Other: Voiding Method Toilet - Labs CBC & Chem 7: 02/20/22 10:26 02/20/22 10:26 Labs: Abnormal Lab Results - Last 24 Hours (Table) 02/20/22 02/20/22 02/20/22 Range/Units 10:26 10:26 10:26 WBC 15.5 H (3.8-10.6) k/uL Plt Count 115 L (150-450) k/uL Neutrophils # 14.0 H (1.3-7.7) k/uL Lymphocytes # 0.2 L (1.0-4.8) k/uL PT (9.0-12.0) sec INR (<1.2) Sodium 129 L (137-145) mmol/L Chloride 95 L (98-107) mmol/L Carbon Dioxide 21 L (22-30) mmol/L BUN 26 H (9-20) mg/dL Creatinine 1.62 H (0.66-1.25) mg/dL Glucose 298 H (74-99) mg/dL POC Glucose (mg/dL) (70-110) mg/dL Urine Protein 1+ H (Negative) Urine Glucose (UA) 4+ H (Negative) Urine Ketones 1+ H (Negative) Urine Blood Small H (Negative) Urine Mucus Rare H (None) /hpf 02/20/22 02/20/22 02/20/22 Range/Units 13:43 16:17 19:12 WBC (3.8-10.6) k/uL Plt Count (150-450) k/uL Neutrophils # (1.3-7.7) k/uL Lymphocytes # (1.0-4.8) k/uL PT 15.1 H (9.0-12.0) sec INR 1.5 H (<1.2) Sodium (137-145) mmol/L Chloride (98-107) mmol/L Carbon Dioxide (22-30) mmol/L BUN (9-20) mg/dL Creatinine (0.66-1.25) mg/dL Glucose (74-99) mg/dL POC Glucose (mg/dL) 204 H 208 H (70-110) mg/dL Urine Protein (Negative) Urine Glucose (UA) (Negative) Urine Ketones (Negative) Urine Blood (Negative) Urine Mucus (None) /hpf 02/21/22 02/21/22 Range/Units 05:55 07:10 WBC (3.8-10.6) k/uL Plt Count (150-450) k/uL Neutrophils # (1.3-7.7) k/uL Lymphocytes # (1.0-4.8) k/uL PT 15.1 H (9.0-12.0) sec INR 1.5 H (<1.2) Sodium (137-145) mmol/L Chloride (98-107) mmol/L Carbon Dioxide (22-30) mmol/L BUN (9-20) mg/dL Creatinine (0.66-1.25) mg/dL Glucose (74-99) mg/dL POC Glucose (mg/dL) 209 H (70-110) mg/dL Urine Protein (Negative) Urine Glucose (UA) (Negative) Urine Ketones (Negative) Urine Blood (Negative) Urine Mucus (None) /hpf Microbiology - Last 24 Hours (Table) 02/20/22 10:35 Blood Culture Gram Stain - Preliminary Blood 02/20/22 10:20 Blood Culture Gram Stain - Preliminary Blood 02/20/22 10:35 Blood Culture - Final Blood 02/20/22 10:20 Blood Culture - Final Blood
[2022-02-21] MEDS: amLODIPine 5 MG TAB PO SCH (08:22)
[2022-02-21] MEDS: TAMSULOSIN 0.4 MG CAP.ER.24H PO SCH (08:22)
[2022-02-21] MEDS: METOPROLOL TARTRATE 50 MG TAB PO SCH ×2 (08:22→20:06)
[2022-02-21] MEDS: INSULIN ASPART (NovoLOG) 100 UNIT/ML VIAL SQ SCH ×3 (08:23→17:38)
[2022-02-21] MEDS ORDERED: lisinopriL 20 MG TAB PO SCH (09:00)
[2022-02-21 12:11] LABS: Glucose,Whole Blood 176 mg/dL (70-110)
[2022-02-21] MEDS: WARFARIN 2 MG TAB PO SCH (16:15)
[2022-02-21] MEDS: WARFARIN 5 MG TAB PO SCH (16:15)
[2022-02-21 16:52] VITALS: BMI 29.9
[2022-02-21 17:19] LABS: Glucose,Whole Blood 175 mg/dL (70-110)
--- NOTE | 2022-02-21 17:29 | P.PN ---
Progress Note - Text Progress Note Date: 02/21/22 Chief Complaint: Flank pain This is a very pleasant 61-year-old patient follows with Dr. Hagan. Chronic stable medical conditions include CAD with stent, diabetes, hypertension, osteoarthritis, kidney stones, history of atrial fibrillation with ablation. Has continued on Coumadin. Patient was seen after he had his double-J stent placed today. at the bedside. 4 days ago patient started having left flank pain. Symptoms started getting worse. Or the weakness started having fever and chills. Decreased oral intake. Also some blood in the urine. Came in. Patient was diagnosed with a computed tomography scan with disseminated kidney stone admin clotted in [place]. He was discharged with [place] and Flomax. He was instructed to follow up with Dr. Quiroz. Symptoms persisted decided to come in here. He today had a double-J stent placement after Richie because of sepsis. February 21: Patient also spiked a fever this morning metabolic less. Patient physician better. On IV ceftriaxone. Blood cultures positive for gram-positive cocci in clusters. Vancomycin added. Decreased appetite. Tired. Active Medications Acetaminophen (Acetaminophen Tab 325 Mg Tab) 650 mg PO Q6HR PRN PRN Reason: Mild Pain or Fever > 100.5 Last Admin: 02/21/22 16:14 Dose: 650 mg Hydrocodone Bitart/Acetaminophen (Hydrocodone/Apap 5-325mg 1 Each Tab) 1 each PO Q4HR PRN PRN Reason: Moderate Pain Amlodipine Besylate (Amlodipine 5 Mg Tab) 5 mg PO DAILY [facility] Last Admin: 02/21/22 08:22 Dose: 5 mg Atorvastatin Calcium (Atorvastatin 80 Mg Tab) 80 mg PO HS [facility] Last Admin: 02/20/22 19:44 Dose: 80 mg Calcium Carbonate/Glycine (Calcium Carbonate 500 Mg Chewable) 1,000 mg PO Q4HR PRN PRN Reason: Dyspepsia Dextrose/Water (Dextrose 50% Syringe 50 Ml) 25 ml IVP PER PROTOCOL PRN; Protocol PRN Reason: Hypoglycemia Dextrose/Water (Dextrose 50% Syringe 50 Ml) 50 ml IVP PER PROTOCOL PRN; Protocol PRN Reason: Hypoglycemia Sodium Chloride (Saline 0.9%) 1,000 mls @ 130 mls/hr IV .Q7H42M [facility] Last Admin: 02/21/22 10:35 Dose: 130 mls/hr Ceftriaxone Sodium 1 gm/ (Sodium Chloride) 50 mls @ 100 mls/hr IVPB Q12HR [facility]; Protocol Last Admin: 02/21/22 08:22 Dose: 100 mls/hr Vancomycin HCl 1,500 mg/ (Sodium Chloride) 250 mls @ 125 mls/hr IVPB Q16H [facility] Insulin Aspart (Insulin Aspart (Novolog) 100 Unit/Ml Vial) 0 unit SQ AC-TID [facility]; Protocol Last Admin: 02/21/22 13:04 Dose: 3 unit Lactulose (Lactulose 20 Gm/30 Ml Cup) 20 gm PO DAILY PRN PRN Reason: Constipation Lorazepam (Lorazepam 0.5 Mg Tab) 0.5 mg PO Q6HR PRN PRN Reason: Anxiety Metoprolol Tartrate (Metoprolol Tartrate 50 Mg Tab) 50 mg PO BID [facility] Last Admin: 02/21/22 08:22 Dose: 50 mg Miscellaneous Information (Warfarin Per Pharmacy) 0 each MISCELLANE DIRECTED PRN PRN Reason: PER PROTOCOL Naloxone HCl (Naloxone 0.4 Mg/Ml 1 Ml Vial) 0.2 mg IV Q2M PRN PRN Reason: Opioid Reversal Tamsulosin HCl (Tamsulosin 0.4 Mg Cap.Er.24h) 0.4 mg PO DAILY [facility] Last Admin: 02/21/22 08:22 Dose: 0.4 mg Temazepam (Temazepam 15 Mg Cap) 15 mg PO HS PRN PRN Reason: Insomnia Warfarin Sodium (Warfarin 5 Mg Tab) 5 mg PO DAILY@1800 [facility] Last Admin: 02/21/22 16:15 Dose: 5 mg Warfarin Sodium (Warfarin 2 Mg Tab) 2 mg PO DAILY@1800 [facility] Last Admin: 02/21/22 16:15 Dose: 2 mg Past medical history to include: Paroxysmal atrial fibrillation corrected with ablation. On Coumadin. CAD with stent, diabetes, hypertension, osteomyelitis, kidney stones Social history: Patient started smoking in [address] 118 years ago. Normally has 2 alcoholic drinks a day. Patient takes [employer]. . Alcohol occasionally. Family history: Reviewed, noncontributory to presentation Physical examination: VITAL SIGNS: 101.6, 90, 22, 109/54, 96% on 2 L GENERAL: Laying in bed, awake, tired EYES: Pupils equal. Conjunctiva normal. HEENT: External appearance of nose and ears normal, oral cavity grossly normal. NECK: JVD not raised; masses not palpable. HEART: First and second heart sounds are normal; no edema. LUNGS: Respiratory rate normal; clear to auscultation. ABDOMEN: Soft, no tenderness, liver spleen not palpable, no masses palpable. PSYCH: Alert and oriented x3; mood and affect normal. MUSCULOSKELETAL:No Clubbing/cyanosis;muscles-grossly intact INVESTIGATIONS, reviewed in the clinical context: White count 15.5 hemoglobin 14.6 platelets 115 sodium 129 potassium 4.1 BUN 26 creatinine 1.6 to COVID 19: Not detected Computed tomography scan of the abdomen pelvis: Moderate left-sided high to hydronephrosis secondary to 4.5 mm left ureteral calculus at the left mid sacral level Assessment and plan: -Acute severe sepsis from obstructive by low nephritis: Slow to respond IV ceftriaxone. IV fluids -Sepsis with positive blood cultures gram-positive cocci in clusters IV vancomycin started. - Moderate left-sided high to hydronephrosis secondary to 4.5 mm left ureteral calculus at the left mid sacral level February 20: Left double-J stent stent placed by Dr. Quiroz. -Acute severe obstructive pyelo nephritis IV ceftriaxone 1 g every 12 -Acute kidney injury from ATN from sepsis IV fluids. Follow renal function. Hold LAINE inhibitor -Paroxysmal atrial fibrillation. Prior history of ablation. Telemetry. On Coumadin -Coumadin monitoring Follow INR -CAD with a prior history of stent Lipitor -Essential hypertension Lopressor 50 mg twice a day, Norvasc 5 mg a day. Hold Zestril -Diabetes mellitus type 2, on oral hypoglycemic Hold metformin. Follow Accu-Cheks and sliding scale. IV ceftriaxone. IV vancomycin added. Repeat labs. Other medications to continue. Discussed with patient.
[2022-02-21] MEDS: ATORVASTATIN 80 MG TAB PO SCH (20:06)
[2022-02-21 21:45] LABS: Glucose,Whole Blood 252 mg/dL (70-110)
[2022-02-22] MEDS: VANCOMYCIN 1,500 MG in SODIUM CHLORIDE 0.9% 250 ML IVPB SCH ×2 (02:00→19:38)
[2022-02-22] MEDS: SODIUM CHLORIDE 0.9% 1,000 ML IV SCH (04:47)
[2022-02-22] MEDS: ACETAMINOPHEN TAB 325 MG TAB PO PRN ×2 (04:49→19:39)
[2022-02-22] MEDS ORDERED: IPRATROPIUM-ALBUTEROL 3 ML NEB INHALATION STA (05:00)
--- NOTE | 2022-02-22 05:39 | XR ---
EXAMINATION TYPE: XR chest 1V DATE OF EXAM: 02/22/2022 COMPARISON: 11/28/2012 HISTORY: Short of breath TECHNIQUE: Single view FINDINGS: Heart is enlarged. There is pulmonary interstitial edema. There are chest leads. Costophren ic angles are clear. IMPRESSION: There is pulmonary edema which appears new compared to old exam and could be acute heart failure.
[2022-02-22] MEDS ORDERED: FUROSEMIDE 10 MG/ML 4 ML VIAL IV STA (05:46)
[2022-02-22 06:01] LABS: African American GFR (CKD) >90 (>60 ml/min/1.73 sqM); Anion Gap 9 mmol/L; Blood Urea Nitrogen 16 mg/dL (9-20); Calcium 7.7 mg/dL (8.4-10.2); Carbon Dioxide 19 mmol/L (22-30); Chloride 104 mmol/L (98-107); Glucose 232 mg/dL (74-99); Non-African American GFR(CKD) >90 (>60 ml/min/1.73 sqM); Potassium 3.9 mmol/L (3.5-5.1); Sodium 132 mmol/L (137-145)
[2022-02-22 06:03] LABS: INR 1.2 (<1.2); Prothrombin Time 12.6 sec (9.0-12.0)
[2022-02-22 06:04] LABS: Basophils % (A) 0 %; Eosinophils % (A) 0 %; HCT 35.9 % (39.0-53.0); HGB 12.4 gm/dL (13.0-17.5); Lymphocytes # (A) 0.4 k/uL (1.0-4.8); Lymphocytes % (A) 6 %; MCH 32.2 pg (25.0-35.0); MCHC 34.6 g/dL (31.0-37.0); MCV 93.1 fL (80.0-100.0); Mean Platelet Volume 11.3; Monocytes # (A) 0.4 k/uL (0-1.0); Monocytes % (A) 6 %; Neutrophils # (A) 5.6 k/uL (1.3-7.7); Neutrophils % (A) 84 %; RBC 3.85 m/uL (4.30-5.90); RDW 12.8 % (11.5-15.5); WBC 6.7 k/uL (3.8-10.6)
[2022-02-22 06:55] LABS: Large Platelets Present
[2022-02-22 06:58] LABS: Platelet Count 79 k/uL (150-450)
[2022-02-22 08:01] LABS: Glucose,Whole Blood 257 mg/dL (70-110)
[2022-02-22] MEDS: TAMSULOSIN 0.4 MG CAP.ER.24H PO SCH (08:13)
[2022-02-22] MEDS: amLODIPine 5 MG TAB PO SCH (08:13)
[2022-02-22] MEDS: METOPROLOL TARTRATE 50 MG TAB PO SCH ×2 (08:13→19:39)
[2022-02-22] MEDS: INSULIN ASPART (NovoLOG) 100 UNIT/ML VIAL SQ SCH ×3 (08:14→18:26)
--- NOTE | 2022-02-22 09:40 | P.CRDCN ---
History of Present Illness History of present illness: HISTORY OF PRESENTING ILLNESS Patient is a pleasant 61-year-old male with history of CAD with prior PCI, diabetes mellitus type 2, hypertension, arthritis, kidney stones, persistent atrial fibrillation status post ablation, prior tobacco abuse and quit who presented initially to [facility] with flank pain and was diagnosed with UTI/pyelonephritis and obstructive kidney stone. Patient was evaluated by urology with a ureteral stent placed. He was noted to be septic and placed on antibiotics and has been feeling somewhat better in terms of improved appetite, decreased flank pain and nausea. He states he previously remotely seen Dr. Cain and had stenting years ago however then followed with [facility] and had an ablation by Dr. Wilkins and has been doing much better in terms of A. fib burden. He denies any chest pain or pressure. Initially had acute kidney injury and was given IV fluids. He developed more shortness breath overnight however denied any chest pain or pressure. Chest x-ray showed increased vascular congestion and was diagnosed with heart failure and placed on diuretics. He states he feels somewhat better this morning after receiving Lasix. Prior echo had shown EF 35-40% around the time of this ELISA however denies any history of cardiomyopathy that he knows of. No EKG currently on file however telemetry reveals normal sinus rhythm with controlled heart rates. REVIEW OF SYSTEMS At the time of my exam: CONSTITUTIONAL: Denies fever or chills. CARDIOVASCULAR: Denies chest pain, +shortness of breath, +orthopnea, no PND or palpitations. RESPIRATORY: Denies cough. GASTROINTESTINAL: Denies abdominal pain, diarrhea, constipation, nausea or vomiting. + Improved flank pain MUSCULOSKELETAL: Denies myalgias. NEUROLOGIC: Denies numbness, tingling or weakness. ENDOCRINE: Denies fatigue, weight change, polydipsia or polyurina. GENITOURINARY: Denies burning, hematuria or urgency with micturation. HEMATOLOGIC: Denies history of anemia or bleeding. PHYSICAL EXAMINATION Vital signs reviewed. CONSTITUTIONAL: No apparent distress. HEENT: Head is normocephalic. Pupils are equal, round. Sclerae anicteric. Mucous membranes of the mouth are moist. No JVD. No carotid bruit. CHEST EXAMINATION: Bilateral crackles at bases HEART EXAMINATION: Regular rate and rhythm. S1, S2 heard. No murmurs, gallops or rub. ABDOMEN: Soft, nontender. Positive bowel sounds. EXTREMITIES: 2+ peripheral pulses, no lower extremity edema and no calf tenderness. NEUROLOGIC EXAMINATION: Patient is awake, alert and oriented x3. ASSESSMENT 1. Acute on chronic heart failure, unknown diastolic versus systolic 2. Mild troponin elevation, type II mechanism related to sepsis. Do not suspect acute coronary syndrome 3. History of CAD status post PCI 4. Persistent atrial fibrillation status post ablation, currently sinus rhythm 5. Hypertension mildly elevated 6. Acute kidney injury improved 7. Hyponatremia likely some component of volume overload 8. Appears tobacco abuse 9. Sepsis, pyelonephritis status post ureteral stent 10. Thrombocytopenia 11. Mild alcohol use PLAN Patient with decompensated heart failure likely somewhat related to IV fluids which were given for acute kidney injury. Appears to be improving from his sepsis. Continue with IV Lasix. Check 2-D echo with prior documentation of decreased EF on ELISA however no recent echo and has not had good outpatient follow-up. If decreased EF likely change amlodipine to optimize heart failure regimen. No significant angina-type symptoms do not suspect acute coronary syndrome. Further recommendations to follow and hopeful discharge in next 24-48 hours from a cardiology standpoint if continues to improve. Past Medical History Past Medical History: Atrial Fibrillation, Coronary Artery Disease (CAD), Diabetes Mellitus, Hypertension, Osteoarthritis (OA) Additional Past Medical History / Comment(s): kidney stones History of Any Multi-Drug Resistant Organisms: None Reported Past Surgical History: Heart Catheterization With Stent Additional Past Surgical History / Comment(s): Colonoscopy Past Anesthesia/Blood Transfusion Reactions: No Reported Reaction Date of Last Stent Placement:: 2012 Past Psychological History: No Psychological Hx Reported Smoking Status: Former smoker Past Alcohol Use History: Occasional Past Drug Use History: None Reported - Past Family History Mother Family Medical History: No Reported History Father Family Medical History: Coronary Artery Disease (CAD) Medications and Allergies Home Medications Medication Instructions Recorded Confirmed Type amLODIPine [Norvasc] 5 mg PO DAILY 11/10/16 02/20/22 History lisinopriL [Zestril] 20 mg PO DAILY 11/10/16 02/20/22 History Atorvastatin [Lipitor] 80 mg PO HS 02/20/22 02/20/22 History HYDROcodone/APAP 5-325MG [Liberal 1 tab PO Q8H PRN 02/20/22 02/20/22 History 5-325] Eleno's Leg Cramps 1 tab PO HS 02/20/22 02/20/22 History Ketorolac Tromethamine 10 mg PO Q8H PRN 02/20/22 02/20/22 History Metoprolol Tartrate [Lopressor] 50 mg PO BID 02/20/22 02/20/22 History Tamsulosin [Flomax] 0.4 mg PO DAILY 02/20/22 02/20/22 History Warfarin Sodium 6 mg PO DAILY 02/20/22 02/20/22 History Warfarin [Coumadin] 1 mg PO DAILY 02/20/22 02/20/22 History metFORMIN HCL 1,000 mg PO BID 02/20/22 02/20/22 History Allergies Allergy/AdvReac Type Severity Reaction Status Date / Time No Known Allergies Allergy Verified 02/20/22 12:49 Physical Exam Vitals: Vital Signs Temp Pulse Pulse Resp BP BP Pulse Ox 02/22/22 09:14 99.8 F H 92 20 142/63 94 L 02/22/22 08:10 91 20 139/77 96 02/22/22 07:30 99.7 F H 92 23 150/70 94 L 02/22/22 07:03 100.2 F H 91 24 130/67 94 L 02/22/22 06:44 100.1 F H 89 25 H 136/69 93 L 02/22/22 06:15 92 36 H 134/72 94 L 02/22/22 05:59 91 36 H 140/68 92 L 02/22/22 05:45 93 L 02/22/22 05:41 90 36 H 160/80 89 L 02/22/22 05:36 94 02/22/22 05:23 86 89 L 02/22/22 04:50 100.6 F H 83 36 H 140/64 88 L 02/22/22 00:23 100.0 F H 81 19 140/64 92 L 02/21/22 20:00 99.3 F 86 20 144/65 86 L 02/21/22 16:10 100.1 F H 02/21/22 14:00 98.6 F 79 20 129/66 93 L 02/21/22 10:37 100.2 F H Intake and Output 02/21/22 02/22/22 02/22/22 22:59 06:59 14:59 Intake Total 2050 237 Output Total 900 1100 Balance [id number] Intake: Intake, IV Titration 1550 Amount Sodium Chloride 0.9% 1, 1000 000 ml @ 130 mls/hr IV . Q7H42M [facility] Rx#:[id number] Vancomycin 2,000 mg In 500 Sodium Chloride 0.9% 500 ml 500 ml @ 167 mls/hr IVPB Q16H [facility] Rx#: [id number] cefTRIAXone 1 gm In 50 Sodium Chloride 0.9% 50 ml @ 100 mls/hr IVPB Q12HR [facility] Rx#:[id number] Oral 500 237 Output: Urine 900 1100 Other: Voiding Method Toilet Weight 97.522 kg Results 02/22/22 05:35 02/22/22 05:35 Cardiac Enzymes 02/22/22 Range/Units 05:35 Troponin I 0.059 H* (0.000-0.034) ng/mL Coagulation 02/22/22 Range/Units 05:35 PT 12.6 H (9.0-12.0) sec CBC 02/22/22 Range/Units 05:35 WBC 6.7 (3.8-10.6) k/uL RBC 3.85 L (4.30-5.90) m/uL Hgb 12.4 L (13.0-17.5) gm/dL Hct 35.9 L (39.0-53.0) % Plt Count 79 L (150-450) k/uL Comprehensive Metabolic Panel 02/22/22 Range/Units 05:35 Sodium 132 L (137-145) mmol/L Potassium 3.9 (3.5-5.1) mmol/L Chloride 104 (98-107) mmol/L Carbon Dioxide 19 L (22-30) mmol/L BUN 16 (9-20) mg/dL Creatinine 0.89 (0.66-1.25) mg/dL Glucose 232 H (74-99) mg/dL Calcium 7.7 L (8.4-10.2) mg/dL Current Medications Generic Name Dose Route Start Last Admin Trade Name Freq PRN Reason Stop Dose Admin Acetaminophen 650 mg 02/20/22 12:34 02/22/22 04:49 Acetaminophen Tab 325 Mg Tab PO 650 mg Q6HR PRN Administration Mild Pain or Fever > 100.5 Hydrocodone Bitart/Acetaminophen 1 each 02/20/22 12:34 02/21/22 20:07 Hydrocodone/Apap 5-325mg 1 Each Tab PO 1 each Q4HR PRN Administration Moderate Pain Amlodipine Besylate 5 mg 02/21/22 09:00 02/22/22 08:13 Amlodipine 5 Mg Tab PO 5 mg DAILY [facility] Administration Atorvastatin Calcium 80 mg 02/20/22 21:00 02/21/22 20:06 Atorvastatin 80 Mg Tab PO 80 mg HS [facility]HAD Administration Calcium Carbonate/Glycine 1,000 mg 02/20/22 21:25 02/21/22 22:59 Calcium Carbonate 500 Mg Chewable PO 1,000 mg Q4HR PRN Administration Dyspepsia Dextrose/Water 25 ml 02/20/22 21:26 Dextrose 50% Syringe 50 Ml IVP PER PROTOCOL PRN Hypoglycemia Protocol Dextrose/Water 50 ml 02/20/22 21:26 Dextrose 50% Syringe 50 Ml IVP PER PROTOCOL PRN Hypoglycemia Protocol Ceftriaxone Sodium 1 gm/ 50 mls @ 100 mls/hr 02/20/22 21:30 02/22/22 08:13 Sodium Chloride IVPB 100 mls/hr Q12HR [facility]AD Administration Protocol Vancomycin HCl 1,500 mg/ 250 mls @ 125 mls/hr 02/22/22 02:00 02/22/22 02:00 Sodium Chloride IVPB 125 mls/hr Q16H [facility] Administration Insulin Aspart 0 unit 02/21/22 07:30 02/22/22 08:14 Insulin Aspart (Novolog) 100 Unit/Ml Vial SQ 9 unit AC-TID FAHAD Administration Protocol Lactulose 20 gm 02/20/22 21:25 Lactulose 20 Gm/30 Ml Cup PO DAILY PRN Constipation Lorazepam 0.5 mg 02/20/22 21:25 Lorazepam 0.5 Mg Tab PO Q6HR PRN Anxiety Metoprolol Tartrate 50 mg 02/20/22 21:00 02/22/22 08:13 Metoprolol Tartrate 50 Mg Tab PO 50 mg BID FAHAD Administration Miscellaneous Information 0 each 02/20/22 13:21 Warfarin Per Pharmacy MISCELLANE DIRECTED PRN PER PROTOCOL Naloxone HCl 0.2 mg 02/20/22 12:34 Naloxone 0.4 Mg/Ml 1 Ml Vial IV Q2M PRN Opioid Reversal Tamsulosin HCl 0.4 mg 02/21/22 09:00 02/22/22 08:13 Tamsulosin 0.4 Mg Cap.Er.24h PO 0.4 mg DAILY FAHAD Administration Temazepam 15 mg 02/20/22 21:25 02/22/22 02:00 Temazepam 15 Mg Cap PO 15 mg HS PRN Administration Insomnia Warfarin Sodium 5 mg 02/21/22 18:00 02/21/22 16:15 Warfarin 5 Mg Tab PO 5 mg DAILY@1800 FAHAD Administration Warfarin Sodium 2 mg 02/21/22 18:00 02/21/22 16:15 Warfarin 2 Mg Tab PO 2 mg DAILY@1800 FAHAD Administration Intake and Output 02/21/22 02/22/22 02/22/22 22:59 06:59 14:59 Intake Total 2050 237 Output Total 900 1100 Balance 2049 Intake: Intake, IV Titration 1550 Amount Sodium Chloride 0.9% 1, 1000 000 ml @ 130 mls/hr IV . Q7H42M [facility] Rx#:[id number] Vancomycin 2,000 mg In 500 Sodium Chloride 0.9% 500 ml 500 ml @ 167 mls/hr IVPB Q16H [facility] Rx#: [id number] cefTRIAXone 1 gm In 50 Sodium Chloride 0.9% 50 ml @ 100 mls/hr IVPB Q12HR [facility] Rx#:[id number] Oral 500 237 Output: Urine 900 1100 Other: Voiding Method Toilet Weight 97.522 kg 02/22/22 05:35 02/22/22 05:35
[2022-02-22] MEDS: FUROSEMIDE 10 MG/ML 4 ML VIAL IV SCH ×2 (10:05→19:39)
--- NOTE | 2022-02-22 11:30 | P.CNPUL ---
History of Present Illness Consult date: 02/22/22 Requesting physician: Adeline Jacinto Reason for consult: dyspnea, hypoxemia, abnormal CXR/CT Chief complaint: Left flank pain, fever, nausea History of present illness: This is a very pleasant 61-year-old male patient who follows with Dr. Hagan as his primary care provider. He has a history of hypertension, hyperlipidemia, coronary artery disease with previous stent placement, atrial fibrillation with previous ablation, anticoagulated with warfarin, diabetes mellitus, former smoker. He was recently diagnosed with a 7 mm kidney stone at [facility] where he was residing at [facility]. He was given Freedom on Flomax and instructed to follow-up with Dr. Quiroz. He ended up presenting here to the emergency room on 02/20/2022 with ongoing pain and fever. Ultrasound of the kidneys revealed a left hydronephrosis but no evidence of stone. Computed tomography scan of the abdomen revealed a moderate left-sided headache or ureteral nephrosis secondary to a 4.5 mm left ureteral at the left mid sacral level. Mild left renal edema and perinephric stranding. That same afternoon he did undergo cystoscopy with placement of a double-J catheter on the left by Dr. Crabtree. He did develop ongoing fevers. He developed increasing shortness of breath. Chest x-ray revealed evidence of pulmonary edema and we're consulted for the same. He is seen today on the regular medical floor. Currently sitting up in a chair at the bedside. Denies any significant left-sided chest disc omfort. He was initially on 7 L high flow nasal cannula this morning. He's been tapered down to 5 and maintaining O2 saturation in the low 90s. Initial blood culture revealed no growth. Blood culture did reveal Staphylococcus epidermidis. White count 6.7. Hemoglobin 12.4. Platelets 79,000. INR 1.2. Sodium 132. Potassium 3.9. BUN 16. Creatinine 0.89. Glucose 233. Troponin 0.059, 0.060. ProBNP 1790. He received IV Lasix and is currently in a -1.2 L balance. He is breathing a bit easier today compared to yesterday. Current temperature 99.8. Hemodynamically stable. He's been initiated on vancomycin and ceftriaxone. Would also remains on IV Lasix 40 mg every 12 hours. Review of Systems REVIEW OF SYSTEMS: CONSTITUTIONAL: Denies any recent significant weight loss or weight gain. EYES: Denies change in vision. EARS, NOSE, MOUTH, THROAT: Denies headaches, denies sore throat. CARDIOVASCULAR: Denies chest pain, palpitations or syncopal episodes. RESPIRATORY: Positive for shortness of breath, cough, congestion no hemoptysis. GASTROINTESTINAL: Denies change in appetite, denies abdominal pain GENITOURINARY: Positive for left flank pain. MUSKULOSKELETAL: Denies pain, denies swelling. INTEGUMENTARY: Denies rash, denies eczema. NEUROLOGICAL: Denies recent memory loss, no recent seizure activity. PSYCHIATRIC: Denies anxiety, denies depression. HEMATOLOGIC/LYMPHATIC: Denies anemia, denies enlarged lymph nodes. Past Medical History Past Medical History: Atrial Fibrillation, Coronary Artery Disease (CAD), Diabetes Mellitus, Hypertension, Osteoarthritis (OA) Additional Past Medical History / Comment(s): kidney stones History of Any Multi-Drug Resistant Organisms: None Reported Past Surgical History: Heart Catheterization With Stent Additional Past Surgical History / Comment(s): Colonoscopy Past Anesthesia/Blood Transfusion Reactions: No Reported Reaction Date of Last Stent Placement:: 2012 Past Psychological History: No Psychological Hx Reported Smoking Status: Former smoker Past Alcohol Use History: Occasional Past Drug Use History: None Reported - Past Family History Mother Family Medical History: No Reported History Father Family Medical History: Coronary Artery Disease (CAD) Medications and Allergies Home Medications Medication Instructions Recorded Confirmed Type amLODIPine [Norvasc] 5 mg PO DAILY 11/10/16 02/20/22 History lisinopriL [Zestril] 20 mg PO DAILY 11/10/16 02/20/22 History Atorvastatin [Lipitor] 80 mg PO HS 02/20/22 02/20/22 History HYDROcodone/APAP 5-325MG [Freedom 1 tab PO Q8H PRN 02/20/22 02/20/22 History 5-325] Eleno's Leg Cramps 1 tab PO HS 02/20/22 02/20/22 History Ketorolac Tromethamine 10 mg PO Q8H PRN 02/20/22 02/20/22 History Metoprolol Tartrate [Lopressor] 50 mg PO BID 02/20/22 02/20/22 History Tamsulosin [Flomax] 0.4 mg PO DAILY 02/20/22 02/20/22 History Warfarin Sodium 6 mg PO DAILY 02/20/22 02/20/22 History Warfarin [Coumadin] 1 mg PO DAILY 02/20/22 02/20/22 History metFORMIN HCL 1,000 mg PO BID 02/20/22 02/20/22 History Allergies Allergy/AdvReac Type Severity Reaction Status Date / Time No Known Allergies Allergy Verified 02/20/22 12:49 Physical Exam Vitals: Vital Signs Temp Pulse Pulse Resp BP BP Pulse Ox 02/22/22 10:02 87 26 H 122/66 94 L 02/22/22 09:14 99.8 F H 92 20 142/63 94 L 02/22/22 08:10 91 20 139/77 96 02/22/22 07:30 99.7 F H 92 23 150/70 94 L 02/22/22 07:03 100.2 F H 91 24 130/67 94 L 02/22/22 06:44 100.1 F H 89 25 H 136/69 93 L 02/22/22 06:15 92 36 H 134/72 94 L 02/22/22 05:59 91 36 H 140/68 92 L 02/22/22 05:45 93 L 02/22/22 05:41 90 36 H 160/80 89 L 02/22/22 05:36 94 02/22/22 05:23 86 89 L 02/22/22 04:50 100.6 F H 83 36 H 140/64 88 L 02/22/22 00:23 100.0 F H 81 19 140/64 92 L 02/21/22 20:00 99.3 F 86 20 144/65 86 L 02/21/22 16:10 100.1 F H 02/21/22 14:00 98.6 F 79 20 129/66 93 L Intake and Output 02/21/22 02/22/22 02/22/22 22:59 06:59 14:59 Intake Total 2049 237 Output Total 2200 Balance 2049 Intake: Intake, IV Titration 1550 Amount Sodium Chloride 0.9% 1, 1000 000 ml @ 130 mls/hr IV . Q7H42M [facility] Rx#:[id number] Vancomycin 2,000 mg In 500 Sodium Chloride 0.9% 500 ml 500 ml @ 167 mls/hr IVPB Q16H [facility] Rx#: [id number] cefTRIAXone 1 gm In 50 Sodium Chloride 0.9% 50 ml @ 100 mls/hr IVPB Q12HR [facility] Rx#:[id number] Oral 500 237 Output: Urine 900 2200 Other: Voiding Method Toilet Weight 97.522 kg GENERAL EXAM: Alert, very pleasant 61-year-old male patient, on 6 L high flow nasal cannula, up in a chair, fairly comfortable in no apparent distress. HEAD: Normocephalic. EYES: Normal reaction of pupils, equal size. NOSE: Clear with pink turbinates. THROAT: No erythema or exudates. NECK: No masses, no JVD. CHEST: No chest wall deformity. LUNGS: Equal air entry with crackles in the bilateral bases. CVS: S1 and S2 normal with no audible murmur, regular rhythm. ABDOMEN: No hepatosplenomegaly, normal bowel sounds, no guarding or rigidity. SPINE: No scoliosis or deformity SKIN: No rashes CENTRAL NERVOUS SYSTEM: No focal deficits, tone is normal in all 4 extremities. EXTREMITIES: There is no peripheral edema. No clubbing, no cyanosis. Periphera l pulses are intact. Results - Laboratory Findings CBC and BMP: 02/22/22 05:35 02/22/22 05:35 PT/INR, D-dimer PT 12.6 sec (9.0-12.0) H 02/22/22 05:35 INR 1.2 (<1.2) H 02/22/22 05:35 Abnormal lab findings: Abnormal Labs 02/20/22 02/20/22 02/20/22 10:26 10:26 10:26 WBC 15.5 H RBC Hgb Hct Plt Count 115 L Neutrophils # 14.0 H Lymphocytes # 0.2 L PT INR Sodium 129 L Chloride 95 L Carbon Dioxide 21 L BUN 26 H Creatinine 1.62 H Glucose 298 H POC Glucose (mg/dL) Calcium Troponin I Urine Protein 1+ H Urine Glucose (UA) 4+ H Urine Ketones 1+ H Urine Blood Small H Urine Mucus Rare H 02/20/22 02/20/22 02/20/22 13:43 16:17 19:12 WBC RBC Hgb Hct Plt Count Neutrophils # Lymphocytes # PT 15.1 H INR 1.5 H Sodium Chloride Carbon Dioxide BUN Creatinine Glucose POC Glucose (mg/dL) 204 H 208 H Calcium Troponin I Urine Protein Urine Glucose (UA) Urine Ketones Urine Blood Urine Mucus 02/21/22 02/21/22 02/21/22 05:55 07:10 12:09 WBC RBC Hgb Hct Plt Count Neutrophils # Lymphocytes # PT 15.1 H INR 1.5 H Sodium Chloride Carbon Dioxide BUN Creatinine Glucose POC Glucose (mg/dL) 209 H 176 H Calcium Troponin I Urine Protein Urine Glucose (UA) Urine Ketones Urine Blood Urine Mucus 02/21/22 02/21/22 02/22/22 17:16 21:43 05:35 WBC RBC 3.85 L Hgb 12.4 L Hct 35.9 L Plt Count 79 L Neutrophils # Lymphocytes # 0.4 L PT INR Sodium Chloride Carbon Dioxide BUN Creatinine Glucose POC Glucose (mg/dL) 175 H 252 H Calcium Troponin I Urine Protein Urine Glucose (UA) Urine Ketones Urine Blood Urine Mucus 02/22/22 02/22/22 02/22/22 05:35 05:35 05:35 WBC RBC Hgb Hct Plt Count Neutrophils # Lymphocytes # PT 12.6 H INR 1.2 H Sodium 132 L Chloride Carbon Dioxide 19 L BUN Creatinine Glucose 232 H POC Glucose (mg/dL) Calcium 7.7 L Troponin I 0.059 H* Urine Protein Urine Glucose (UA) Urine Ketones Urine Blood Urine Mucus 02/22/22 02/22/22 07:58 09:32 WBC RBC Hgb Hct Plt Count Neutrophils # Lymphocytes # PT INR Sodium Chloride Carbon Dioxide BUN Creatinine Glucose POC Glucose (mg/dL) 257 H Calcium Troponin I 0.060 H* Urine Protein Urine Glucose (UA) Urine Ketones Urine Blood Urine Mucus - Diagnostic Findings Chest x-ray: image reviewed Assessment and Plan Assessment: Acute exacerbation of systolic versus diastolic congestive heart failure and fluid overload Left-sided flank pain secondary to nephrolithiasis, status post double-J catheter placement on 02/20/2022 Febrile illness secondary to above History of coronary disease with previous stent placement History of atrial fibrillation with previous ablation, anticoagulated with warfarin, subtherapeutic Hypertension Hyperlipidemia Former smoker Plan: The patient was seen and evaluated Chest x-ray was, labs and medications reviewed Continue vancomycin and ceftriaxone for now Obtain a pro-calcitonin Continue IV diuretics Titrate down the FiO2 as tolerated Follow-up chest x-ray in a.m. Accurate I&O We will continue to follow and make further recommendations based on his clinical status I have personally seen and examined the patient, performed the documentation and the assessment and plan as written. Number of minutes spent on the visit: 20. I have personally seen and examined the patient and reviewed the documentation. I performed a joint evaluation with the nurse practitioner in this evaluation was done more than 20 minutes. I fully agree with the documentation above and the plan of care.. The patient is currently being treated for sepsis and decompensated heart failure. All the cultures are positive for coagulase- negative staph, strep epidermidis. The patient underwent double-J stent insertion for a left kidney pyelonephritis and obstructive uropathy. No flank pain. Hemodynamically improved. Today's afebrile. Continue same antibiotic coverage. Continue diuresis. Oxygen is improving. The chest x-ray findings consistent with pulmonary edema. The patient is anticoagulated. We'll continue to follow. Clinically improving.
[2022-02-22 12:36] LABS: Glucose,Whole Blood 366 mg/dL (70-110)
--- NOTE | 2022-02-22 15:49 | P.PN ---
Progress Note - Text Progress Note Date: 02/22/22 Chief Complaint: Flank pain This is a very pleasant 61-year-old patient follows with Dr. Hagan. Chronic stable medical conditions include CAD with stent, diabetes, hypertension, osteoarthritis, kidney stones, history of atrial fibrillation with ablation. Has continued on Coumadin. Patient was seen after he had his double-J stent placed today. at the bedside. 4 days ago patient started having left flank pain. Symptoms started getting worse. Or the weakness started having fever and chills. Decreased oral intake. Also some blood in the urine. Came in. Patient was diagnosed with a computed tomography scan with disseminated kidney stone admin clotted in [place]. He was discharged with [place] and Flomax. He was instructed to follow up with Dr. Quiroz. Symptoms persisted decided to come in here. He today had a double-J stent placement after [place] because of sepsis. February 21: Patient also spiked a fever this morning metabolic less. Patient physician better. On IV ceftriaxone. Blood cultures positive for gram-positive cocci in clusters. Vancomycin added. Decreased appetite. Tired. February 22: I was called early this morning as patient became short of breath. Became hypoxic. 40 mg IV Lasix was ordered. Checks x-ray showed fluid overloa d. 6 small bump in troponin. Cardiology and pulmonary was consulted. 2-D echo was ordered. Patient made good urine since then. Breathing better. Sitting up in a chair. Eating some breakfast. Active Medications Acetaminophen (Acetaminophen Tab 325 Mg Tab) 650 mg PO Q6HR PRN PRN Reason: Mild Pain or Fever > 100.5 Last Admin: 02/22/22 04:49 Dose: 650 mg Hydrocodone Bitart/Acetaminophen (Hydrocodone/Apap 5-325mg 1 Each Tab) 1 each PO Q4HR PRN PRN Reason: Moderate Pain Last Admin: 02/21/22 20:07 Dose: 1 each Amlodipine Besylate (Amlodipine 5 Mg Tab) 5 mg PO DAILY FAHAD Last Admin: 02/22/22 08:13 Dose: 5 mg Atorvastatin Calcium (Atorvastatin 80 Mg Tab) 80 mg PO HS FAHAD Last Admin: 02/21/22 20:06 Dose: 80 mg Calcium Carbonate/Glycine (Calcium Carbonate 500 Mg Chewable) 1,000 mg PO Q4HR PRN PRN Reason: Dyspepsia Last Admin: 02/21/22 22:59 Dose: 1,000 mg Dextrose/Water (Dextrose 50% Syringe 50 Ml) 25 ml IVP PER PROTOCOL PRN; Protocol PRN Reason: Hypoglycemia Dextrose/Water (Dextrose 50% Syringe 50 Ml) 50 ml IVP PER PROTOCOL PRN; Protocol PRN Reason: Hypoglycemia Furosemide (Furosemide 10 Mg/Ml 4 Ml Vial) 40 mg IV Q12HR [facility] Last Admin: 02/22/22 10:05 Dose: 40 mg Ceftriaxone Sodium 1 gm/ (Sodium Chloride) 50 mls @ 100 mls/hr IVPB Q12HR [facility]; Protocol Last Admin: 02/22/22 08:13 Dose: 100 mls/hr Vancomycin HCl 1,500 mg/ (Sodium Chloride) 250 mls @ 125 mls/hr IVPB Q16H [facility] Last Admin: 02/22/22 02:00 Dose: 125 mls/hr Insulin Aspart (Insulin Aspart (Novolog) 100 Unit/Ml Vial) 0 unit SQ AC-TID [facility]; Protocol Last Admin: 02/22/22 12:46 Dose: 15 unit Lactulose (Lactulose 20 Gm/30 Ml Cup) 20 gm PO DAILY PRN PRN Reason: Constipation Lorazepam (Lorazepam 0.5 Mg Tab) 0.5 mg PO Q6HR PRN PRN Reason: Anxiety Metoprolol Tartrate (Metoprolol Tartrate 50 Mg Tab) 50 mg PO BID [facility] Last Admin: 02/22/22 08:13 Dose: 50 mg Miscellaneous Information (Warfarin Per Pharmacy) 0 each MISCELLANE DIRECTED PRN PRN Reason: PER PROTOCOL Naloxone HCl (Naloxone 0.4 Mg/Ml 1 Ml Vial) 0.2 mg IV Q2M PRN PRN Reason: Opioid Reversal Tamsulosin HCl (Tamsulosin 0.4 Mg Cap.Er.24h) 0.4 mg PO DAILY [facility] Last Admin: 02/22/22 08:13 Dose: 0.4 mg Temazepam (Temazepam 15 Mg Cap) 15 mg PO HS PRN PRN Reason: Insomnia Last Admin: 02/22/22 02:00 Dose: 15 mg Warfarin Sodium (Warfarin 5 Mg Tab) 5 mg PO DAILY@1800 [facility] Last Admin: 02/21/22 16:15 Dose: 5 mg Warfarin Sodium (Warfarin 2 Mg Tab) 2 mg PO DAILY@1800 [facility] Last Admin: 02/21/22 16:15 Dose: 2 mg Past medical history to include: Paroxysmal atrial fibrillation corrected with ablation. On Coumadin. CAD with stent, diabetes, hypertension, osteomyelitis, kidney stones Social history: Patient started smoking in 1975 118 years ago. Normally has 2 alcoholic drinks a day. Patient takes [email or web address]. . Alcohol occasionally. Family history: Reviewed, noncontributory to presentation Physical examination: VITAL SIGNS: 99.8, 92, 20, 142/63, 94% on 6 L GENERAL: Sitting up in a chair, awake, tired EYES: Pupils equal. Conjunctiva normal. HEENT: External appearance of nose and ears normal, oral cavity grossly normal. NECK: JVD not raised; masses not palpable. HEART: First and second heart sounds are normal; no edema. LUNGS: Respiratory rate increased; basal crackles ABDOMEN: Soft, no tenderness, liver spleen not palpable, no masses palpable. PSYCH: Alert and oriented x3; mood and affect normal. MUSCULOSKELETAL:No Clubbing/cyanosis;muscles-grossly intact INVESTIGATIONS, reviewed in the clinical context: Blood culture [February 20]: Staphylococcus epidermidis, coagulase negative staph Chest x-ray film personally reviewed by me-portable/pulmonary edema February 22: WBC 6.7 hemoglobin 12.4 crit with 79 sodium 132 potassium 3.9 creatinine 0.89 Troponin I 0.059, 0.060. ProBNP 1790 White count 15.5 hemoglobin 14.6 platelets 115 sodium 129 potassium 4.1 BUN 26 creatinine 1.6 to COVID 19: Not detected Computed tomography scan of the abdomen pelvis: Moderate left-sided high to hydronephrosis secondary to 4.5 mm left ureteral calculus at the left mid sacral level Assessment and plan: -Acute pulmonary edema from IV fluids. Rule out CHF.: New diagnosis IV Lasix. DC IV fluids. 2-D echocardiogram. -Troponin leak from pulmonary edema with cardiac strain. Rule out CHF. No ACS -Acute severe sepsis from obstructive by low nephritis: Some improvement IV ceftriaxone. IV fluids -Sepsis with positive blood cultures growing Staphylococcus epidermidis and coagulase-negative staph. This may be relevant given sepsis. IV vancomycin . Repeat blood culture. Consult ID. - Moderate left-sided high to hydronephrosis secondary to 4.5 mm left ureteral calculus at the left mid sacral level February 20: Left double-J stent stent placed by Dr. Quiroz. -Acute severe obstructive pyelo nephritis IV ceftriaxone 1 g every 12 -Acute kidney injury from ATN from sepsis: Better IV fluids. Follow renal function. Hold LAINE inhibitor -Paroxysmal atrial fibrillation. Prior history of ablation. Telemetry. On Coumadin -Coumadin monitoring Follow INR -CAD with a prior history of stent Lipitor -Essential hypertension Lopressor 50 mg twice a day, Norvasc 5 mg a day. Hold Zestril -Diabetes mellitus type 2, on oral hypoglycemic Hold metformin. Follow Accu-Cheks and sliding scale. IV ceftriaxone. IV vancomycin . IV Lasix. DC IV fluids. Repeat blood culture. 13 IV antibiotic. Consult ID. Cardiology and pulmonary also consulted. 2-D echocardiogram. Discussed with patient. Total time spent today about 45 minutes with over 30 minutes of discussion
[2022-02-22 17:40] LABS: Glucose,Whole Blood 234 mg/dL (70-110)
[2022-02-22] MEDS: WARFARIN 2 MG TAB PO SCH (19:38)
[2022-02-22] MEDS: WARFARIN 5 MG TAB PO SCH (19:38)
[2022-02-22] MEDS: ATORVASTATIN 80 MG TAB PO SCH (19:39)
[2022-02-22 20:15] LABS: Glucose,Whole Blood 308 mg/dL (70-110)
[2022-02-22] MEDS ORDERED: INSULIN ASPART (NovoLOG) 100 UNIT/ML VIAL SQ ONE (20:30)
[2022-02-22 20:44] LABS: Appearance,Urine Clear (Clear); Bilirubin,Urine Negative (Negative); Blood,Urine Large (Negative); Color,Urine Yellow; Glucose,Urine (UA) 4+ (Negative); Ketones,Urine Negative (Negative); Leukocyte Esterase,Urine Moderate (Negative); Mucus,Urine Rare /hpf; Nitrite,Urine Negative (Negative); Protein,Urine 2+ (Negative); RBC,Urine >182 /hpf (0-5); Specific Gravity,Urine 1.019 (1.001-1.035); Urobilinogen,Urine <2.0 mg/dL (<2.0); WBC,Urine 8 /hpf (0-5)
--- NOTE | 2022-02-22 21:36 | P.CONS ---
History of Present Illness - Reason for Consult Consult date: 02/22/22 Positive blood culture Requesting physician: Shaka Godoy - Chief Complaint Left flank pain x few days - History of Present Illness Patient is a 61-year-old male presenting to the hospital 2 days ago for evaluation of left flank pain fever and nausea and this patient symptom has been going on for about 2 days before presentation to the hospital [place] symptom of left flank pain started patient went to a medical hospital in the [place] with the patient did have a CT scan and there was evidence of a 7 mm kidney stone patient subsequently drove back home and presented to the ER on 02/20/2022 patient was complaining of pain to the flank to be more of a sharp in nature intensity is almost 7-8 out of 10 no specific radiation did have some nausea but no vomiting no diarrhea patient on presentation the hospital did have a fever of 101.8 degrees formulae at and the patient has been running fever for the last 2 days he did have white count of 15.5 with a left shift kidney function was normal liver exams are normal initial urine was negative COVID testing was negative blood cultures with the staff epidermidis patient be treated with Rocephin 1 g daily vancomycin was added today and infectious he was consulted for further management patient did have a CT abdominal pelvis on 829 moderate left-sided ureteral hydronephrosis patient is status post cystoscopy and left ureteral stent placement on 02/20/2022 with persistent fever infection was consulted today for further management of antibiotic therapy Review of Systems Positive point has been mentioned in the HPI rest of the systems are negative Past Medical History Past Medical History: Atrial Fibrillation, Coronary Artery Disease (CAD), Diabetes Mellitus, Hypertension, Osteoarthritis (OA) Additional Past Medical History / Comment(s): kidney stones History of Any Multi-Drug Resistant Organisms: None Reported Past Surgical History: Heart Catheterization With Stent Additional Past Surgical History / Comment(s): Colonoscopy Past Anesthesia/Blood Transfusion Reactions: No Reported Reaction Date of Last Stent Placement:: 2012 Past Psychological History: No Psychological Hx Reported Smoking Status: Former smoker Past Alcohol Use History: Occasional Past Drug Use History: None Reported - Past Family History Mother Family Medical History: No Reported History Father Family Medical History: Coronary Artery Disease (CAD) Medications and Allergies Home Medications Medication Instructions Recorded Confirmed Type amLODIPine [Norvasc] 5 mg PO DAILY 11/10/16 02/20/22 History lisinopriL [Zestril] 20 mg PO DAILY 11/10/16 02/20/22 History Atorvastatin [Lipitor] 80 mg PO HS 02/20/22 02/20/22 History HYDROcodone/APAP 5-325MG [[place] 1 tab PO Q8H PRN 02/20/22 02/20/22 History 5-325] Eleno's Leg Cramps 1 tab PO HS 02/20/22 02/20/22 History Ketorolac Tromethamine 10 mg PO Q8H PRN 02/20/22 02/20/22 History Metoprolol Tartrate [Lopressor] 50 mg PO BID 02/20/22 02/20/22 History Tamsulosin [Flomax] 0.4 mg PO DAILY 02/20/22 02/20/22 History Warfarin Sodium 6 mg PO DAILY 02/20/22 02/20/22 History Warfarin [Coumadin] 1 mg PO DAILY 02/20/22 02/20/22 History metFORMIN HCL 1,000 mg PO BID 02/20/22 02/20/22 History cefUROXime axetiL [Ceftin] 500 mg PO BID 10 Days #20 tab 02/24/22 Rx Allergies Allergy/AdvReac Type Severity Reaction Status Date / Time No Known Allergies Allergy Verified 02/20/22 12:49 Physical Exam Vitals: Vital Signs Temp Pulse Pulse Resp BP Pulse Ox 02/22/22 13:58 100.2 F H 84 20 94 L 02/22/22 11:47 99.5 F 86 21 125/51 93 L 02/22/22 10:02 87 26 H 122/66 94 L 02/22/22 09:14 99.8 F H 92 20 142/63 94 L 02/22/22 08:10 91 20 139/77 96 02/22/22 07:30 99.7 F H 92 23 150/70 94 L 02/22/22 07:03 100.2 F H 91 24 130/67 94 L 02/22/22 06:44 100.1 F H 89 25 H 136/69 93 L 02/22/22 06:15 92 36 H 134/72 94 L 02/22/22 05:59 91 36 H 140/68 92 L 02/22/22 05:45 93 L 02/22/22 05:41 90 36 H 160/80 89 L 02/22/22 05:36 94 02/22/22 05:23 86 89 L 02/22/22 04:50 100.6 F H 83 36 H 140/64 88 L 02/22/22 00:23 100.0 F H 81 19 140/64 92 L 02/21/22 20:00 99.3 F 86 20 144/65 86 L 02/21/22 16:10 100.1 F H Intake and Output 02/22/22 02/22/22 02/22/22 06:59 14:59 22:59 Intake Total 474 Output Total 900 2200 600 Balance -900 -3976 600 Intake: Oral 474 Output: Urine 900 2200 600 GENERAL DESCRIPTION: Middle-aged male lying in bed, no distress. No tachypnea or accessory muscle of respiration use. HEENT: Shows Pallor , no scleral icterus. Oral mucous membrane is dry. No pha ryngeal erythema or thrush NECK: Trachea central, no thyromegaly. LUNGS: Unlabored breathing. Clear to auscultation anteriorly. No wheeze or crackle. HEART: S1, S2, regular rate and rhythm. No loud murmur ABDOMEN: Soft, no tenderness , guarding or rigidity, no organomegaly EXTREMITIES: No edema of feet. SKIN: No rash, no masses palpable. NEUROLOGICAL: The patient is awake, alert, oriented x3, mood and affect normal. Results CBC & Chem 7: 02/24/22 02:31 02/24/22 02:31 Labs: Abnormal Lab Results - Last 24 Hours (Table) 02/21/22 02/21/22 02/22/22 Range/Units 17:16 21:43 05:35 RBC 3.85 L (4.30-5.90) m/uL Hgb 12.4 L (13.0-17.5) gm/dL Hct 35.9 L (39.0-53.0) % Plt Count 79 L (150-450) k/uL Lymphocytes # 0.4 L (1.0-4.8) k/uL PT (9.0-12.0) sec INR (<1.2) Sodium (137-145) mmol/L Carbon Dioxide (22-30) mmol/L Glucose (74-99) mg/dL POC Glucose (mg/dL) 175 H 252 H (70-110) mg/dL Calcium (8.4-10.2) mg/dL Troponin I (0.000-0.034) ng/mL 02/22/22 02/22/22 02/22/22 Range/Units 05:35 05:35 05:35 RBC (4.30-5.90) m/uL Hgb (13.0-17.5) gm/dL Hct (39.0-53.0) % Plt Count (150-450) k/uL Lymphocytes # (1.0-4.8) k/uL PT 12.6 H (9.0-12.0) sec INR 1.2 H (<1.2) Sodium 132 L (137-145) mmol/L Carbon Dioxide 19 L (22-30) mmol/L Glucose 232 H (74-99) mg/dL POC Glucose (mg/dL) (70-110) mg/dL Calcium 7.7 L (8.4-10.2) mg/dL Troponin I 0.059 H* (0.000-0.034) ng/mL 02/22/22 02/22/22 02/22/22 Range/Units 07:58 09:32 11:45 RBC (4.30-5.90) m/uL Hgb (13.0-17.5) gm/dL Hct (39.0-53.0) % Plt Count (150-450) k/uL Lymphocytes # (1.0-4.8) k/uL PT (9.0-12.0) sec INR (<1.2) Sodium (137-145) mmol/L Carbon Dioxide (22-30) mmol/L Glucose (74-99) mg/dL POC Glucose (mg/dL) 257 H (70-110) mg/dL Calcium (8.4-10.2) mg/dL Troponin I 0.060 H* 0.052 H* (0.000-0.034) ng/mL 02/22/22 Range/Units 12:35 RBC (4.30-5.90) m/uL Hgb (13.0-17.5) gm/dL Hct (39.0-53.0) % Plt Count (150-450) k/uL Lymphocytes # (1.0-4.8) k/uL PT (9.0-12.0) sec INR (<1.2) Sodium (137-145) mmol/L Carbon Dioxide (22-30) mmol/L Glucose (74-99) mg/dL POC Glucose (mg/dL) 366 H (70-110) mg/dL Calcium (8.4-10.2) mg/dL Troponin I (0.000-0.034) ng/mL Microbiology - Last 24 Hours (Table) 02/20/22 10:35 Blood Culture Gram Stain - Final Blood Blood Culture - Final Staphylococcus epidermidis Coagulase Negative Staph 02/20/22 10:20 Blood Culture Gram Stain - Final Blood Blood Culture - Final Coagulase Negative Staph Coagulase Negative Staph#2 Assessment and Plan (1) Blood bacterial culture positive Current Visit: Yes Status: Acute Code(s): R78.81 - BACTEREMIA SNOMED Code(s): 7396222929573401 (2) Pyelonephritis of left kidney Current Visit: Yes Status: Acute Code(s): N12 - TUBULO-INTERSTITIAL NEPHRITIS, NOT SPCF ACUTE OR CHRONIC SNOMED Code(s): 50628782 Plan: 1patient presented to hospital with sepsis source likely complicated UTI in this patient who did have a left hydronephrosis requiring cystoscopy and stent placement initially UA was negative more likely because of the blocked kidney and not indicated of the status of the left kidney which is more likely infected and more likely from enteric gram-negative pathogen and gram-positive such as staph epi have not been excluded. 2positive blood culture with staph epi question possible skin contaminant versus related to his pyelonephritis. 3blood cultures will be repeated and also repeat a UA and a culture. 4continue the vancomycin increase the dose of Rocephin to 2 g daily. We will follow on clinical condition and cultures to further adjust medication if needed Thank you for this consultation will follow this patient along with you Time with Patient: Greater than 30
[2022-02-23 03:52] LABS: INR 1.2 (<1.2); Prothrombin Time 12.5 sec (9.0-12.0)
[2022-02-23 03:59] LABS: African American GFR (CKD) >90 (>60 ml/min/1.73 sqM); Anion Gap 10 mmol/L; Blood Urea Nitrogen 19 mg/dL (9-20); Calcium 8.7 mg/dL (8.4-10.2); Carbon Dioxide 28 mmol/L (22-30); Chloride 99 mmol/L (98-107); Glucose 227 mg/dL (74-99); Non-African American GFR(CKD) >90 (>60 ml/min/1.73 sqM); Potassium 3.5 mmol/L (3.5-5.1); Sodium 137 mmol/L (137-145)
--- NOTE | 2022-02-23 07:17 | P.PN ---
Subjective Progress Note Date: 02/23/22 The patient is in the hospital with a urinary tract infection with sepsis, an obstructing stone with pyelonephrosis on the left side requiring a double-J catheter. He is recuperating nicely. His maximum temperature is slowly coming down as expected. He looks much better clinically. They did not do urine culture in the emergency room. The blood cultures grew coag-negative staph. He is on Rocephin which should be appropriate. We'll need a ureteroscopy stone manipulation in a couple weeks. This has been discussed with the patient. Objective - Vital Signs Vital signs: Vital Signs Temp 98.6 F 02/23/22 03:11 Pulse 57 L 02/23/22 03:11 Resp 17 02/23/22 03:11 BP 157/64 02/23/22 03:11 Pulse Ox 90 L 02/23/22 03:11 FiO2 Intake & Output 02/22/22 02/23/22 02/23/22 18:59 06:59 18:59 Intake Total 711 Output Total 2800 1600 Balance -2088 -1599 Intake: Oral 711 Output: Urine 2800 1600 Other: Voiding Method Toilet - Labs CBC & Chem 7: 02/22/22 05:35 02/23/22 03:14 Labs: Abnormal Lab Results - Last 24 Hours (Table) 02/22/22 02/22/22 02/22/22 Range/Units 07:58 09:32 09:32 PT (9.0-12.0) sec INR (<1.2) Glucose (74-99) mg/dL POC Glucose (mg/dL) 257 H (70-110) mg/dL Troponin I 0.060 H* (0.000-0.034) ng/mL Procalcitonin 2.66 H (0.02-0.09) ng/mL Urine Protein (Negative) Urine Glucose (UA) (Negative) Urine Blood (Negative) Ur Leukocyte Esterase (Negative) Urine RBC (0-5) /hpf Urine WBC (0-5) /hpf Urine WBC Clumps (None) /hpf Urine Mucus (None) /hpf 02/22/22 02/22/22 02/22/22 Range/Units 11:45 12:35 17:38 PT (9.0-12.0) sec INR (<1.2) Glucose (74-99) mg/dL POC Glucose (mg/dL) 366 H 234 H (70-110) mg/dL Troponin I 0.052 H* (0.000-0.034) ng/mL Procalcitonin (0.02-0.09) ng/mL Urine Protein (Negative) Urine Glucose (UA) (Negative) Urine Blood (Negative) Ur Leukocyte Esterase (Negative) Urine RBC (0-5) /hpf Urine WBC (0-5) /hpf Urine WBC Clumps (None) /hpf Urine Mucus (None) /hpf 02/22/22 02/22/22 02/23/22 Range/Units 17:40 20:13 03:14 PT (9.0-12.0) sec INR (<1.2) Glucose 227 H (74-99) mg/dL POC Glucose (mg/dL) 308 H (70-110) mg/dL Troponin I (0.000-0.034) ng/mL Procalcitonin (0.02-0.09) ng/mL Urine Protein 2+ H (Negative) Urine Glucose (UA) 4+ H (Negative) Urine Blood Large H (Negative) Ur Leukocyte Esterase Moderate H (Negative) Urine RBC >182 H (0-5) /hpf Urine WBC 8 H (0-5) /hpf Urine WBC Clumps Rare H (None) /hpf Urine Mucus Rare H (None) /hpf 02/23/22 Range/Units 03:14 PT 12.5 H (9.0-12.0) sec INR 1.2 H (<1.2) Glucose (74-99) mg/dL POC Glucose (mg/dL) (70-110) mg/dL Troponin I (0.000-0.034) ng/mL Procalcitonin (0.02-0.09) ng/mL Urine Protein (Negative) Urine Glucose (UA) (Negative) Urine Blood (Negative) Ur Leukocyte Esterase (Negative) Urine RBC (0-5) /hpf Urine WBC (0-5) /hpf Urine WBC Clumps (None) /hpf Urine Mucus (None) /hpf Microbiology - Last 24 Hours (Table) 02/20/22 10:35 Blood Culture Gram Stain - Final Blood Blood Culture - Final Staphylococcus epidermidis Coagulase Negative Staph 02/20/22 10:20 Blood Culture Gram Stain - Final Blood Blood Culture - Final Coagulase Negative Staph Coagulase Negative Staph#2
[2022-02-23 07:18] LABS: Glucose,Whole Blood 245 mg/dL (70-110)
[2022-02-23 07:39] VITALS: RESP 18
[2022-02-23] MEDS: FUROSEMIDE 10 MG/ML 4 ML VIAL IV SCH (08:22)
[2022-02-23] MEDS: amLODIPine 5 MG TAB PO SCH (08:24)
[2022-02-23] MEDS: METOPROLOL TARTRATE 50 MG TAB PO SCH ×2 (08:24→19:23)
[2022-02-23] MEDS: TAMSULOSIN 0.4 MG CAP.ER.24H PO SCH (08:24)
[2022-02-23] MEDS: INSULIN ASPART (NovoLOG) 100 UNIT/ML VIAL SQ SCH ×3 (08:24→17:48)
--- NOTE | 2022-02-23 10:00 | CA ---
Transthoracic Echo Report Name: Austin Martinez Age: 61 Gender: M : 1960 Exam Date: 02/22/2022 13:50 Exam Location: [facility] Ht (in): 71 Wt (lb): 216 Ordering Physician: Mateo Tucker DO ([email or web address]) Attending/Referring Phys: Lumber Handler Lori Plascencia RDCS Procedure CPT: Indications: new CHF Cardiac Hx: Technical Quality: Technically difficult study Contrast 1: Lumason Total Dose (mL): 4 Contrast 2: Total Dose (mL): MEASUREMENTS (Male / Female) Normal Values 2D ECHO LV Diastolic Diameter PLAX 4.5 cm 4.2 - 5.9 / 3.9 - 5.3 cm LV Systolic Diameter PLAX 2.8 cm IVS Diastolic Thickness 1.5 cm 0.6 - 1.0 / 0.6 - 0.9 cm LVPW Diastolic Thickness 1.8 cm 0.6 - 1.0 / 0.6 - 0.9 cm LV Relative Wall Thickness 0.7 RV Internal Dim ED PLAX 4.6 cm LA Volume 49.0 cm??? 18 - 58 / 22 - 52 cm??? M-MODE Aortic Root Diameter MM 3.4 cm LA Systolic Diameter MM 4.7 cm LA Ao Ratio MM 1.4 AV Cusp Separation MM 2.0 cm DOPPLER AV Peak Velocity 154.3 cm/s AV Peak Gradient 9.5 mmHg LVOT Peak Velocity 127.5 cm/s LVOT Peak Gradient 6.5 mmHg MV Area PHT 4.5 cm??? Mitral E Point Velocity 96.7 cm/s Mitral A Point Velocity 59.4 cm/s Mitral E to A Ratio 1.6 MV Deceleration Time 168.0 ms MV E' Velocity 13.6 cm/s Mitral E to MV E' Ratio 7.1 TR Peak Velocity 203.5 cm/s TR Peak Gradient 16.6 mmHg Right Ventricular Systolic Press 21.6 mmHg FINDINGS Left Ventricle Moderately increased left ventricular wall thickness. Normal left ventricular systolic function with no obvious regional wall motion abnormalities. Left ventricular ejection fraction is estimated at 55-60 %. Right Ventricle Right ventricle not well visualized. Right ventricular systolic pressure within normal limits. Right Atrium Normal right atrial size. Left Atrium Normal left atrial size. No evidence for an atrial septal defect. Mitral Valve Structurally normal mitral valve. Trace mitral regurgitation. Aortic Valve No aortic valve stenosis or regurgitation. Tricuspid Valve Mild tricuspid regurgitation. Pulmonic Valve Trace pulmonic regurgitation. Pericardium No pericardial effusion. Aorta Normal size aortic root and proximal ascending aorta. CONCLUSIONS Moderate LVH Normal left ventricular EF 55-60% Trace mitral regurgitation Mild tricuspid regurgitation RVSP 21 No pericardial effusion Previewed by: Dr. Mateo Tucker DO (Electronically Signed) Final Date: 23 February 2022 09:59
--- NOTE | 2022-02-23 10:01 | P.PN ---
Subjective HISTORY OF PRESENTING ILLNESS Patient is a pleasant 61-year-old male with history of CAD with prior PCI, diabetes mellitus type 2, hypertension, arthritis, kidney stones, persistent atrial fibrillation status post ablation, prior tobacco abuse and quit who presented initially to [facility] with flank pain and was diagnosed with UTI/pyelonephritis and obstructive kidney stone. Patient was evaluated by urology with a ureteral stent placed. He was noted to be septic and placed on antibiotics and has been feeling somewhat better in terms of improved appetite, decreased flank pain and nausea. He states he previously remotely seen Dr. Caron storey and had stenting years ago however then followed with [facility] and had an ablation by Dr. Wilkins and has been doing much better in terms of A. fib burden. He denies any chest pain or pressure. Initially had acute kidney injury and was given IV fluids. He developed more shortness breath overnight however denied any chest pain or pressure. Chest x-ray showed increased vascular congestion and was diagnosed with heart failure and placed on diuretics. He states he feels somewhat better this morning after receiving Lasix. Prior echo had shown EF 35-40% around the time of this ELISA however denies any history of cardiomyopathy that he knows of. No EKG currently on file however telemetry reveals normal sinus rhythm with controlled heart rates. 02/23 Patient seen and examined. Patient states he is feeling much better. Denies any chest pain or pressure. Still some shortness breath however predominantly improved. Has been receiving Lasix with good urine output. Creatinine stable at 0.9. Echocardiogram performed yesterday shows normal left ventricular ejection fraction 55-60% with mild valvular disease. PHYSICAL EXAMINATION Vital signs reviewed. CONSTITUTIONAL: No apparent distress. HEENT: Head is normocephalic. Pupils are equal, round. Sclerae anicteric. Mucous membranes of the mouth are moist. No JVD. No carotid bruit. CHEST EXAMINATION: Bilateral crackles at bases HEART EXAMINATION: Regular rate and rhythm. S1, S2 heard. No murmurs, gallops or rub. ABDOMEN: Soft, nontender. Positive bowel sounds. EXTREMITIES: 2+ peripheral pulses, no lower extremity edema and no calf tenderness. NEUROLOGIC EXAMINATION: Patient is awake, alert and oriented x3. ASSESSMENT 1. Acute on chronic diastolic heart failure 2. Mild troponin elevation, type II mechanism related to sepsis. Do not suspect acute coronary syndrome 3. History of CAD status post PCI 4. Persistent atrial fibrillation status post ablation, currently sinus rhythm 5. Hypertension mildly elevated 6. Acute kidney injury improved 7. Hyponatremia likely some component of volume overload 8. Appears tobacco abuse 9. Sepsis, pyelonephritis status post ureteral stent 10. Thrombocytopenia 11. Mild alcohol use PLAN Patient appears to be continuing to progress well. Echocardiogram shows pres erved EF without significant valvular disease. Appears to be doing well on diuretics. Appears stable for discharge home from a cardiology standpoint either later today or tomorrow. Follow-up in office in 1 week. Objective - Vital Signs Vital signs: Vital Signs Temp 98 F 02/23/22 07:38 Pulse 84 02/23/22 07:38 Resp 18 02/23/22 07:38 BP 168/84 02/23/22 07:38 Pulse Ox 93 L 02/23/22 07:38 FiO2 Intake & Output 02/22/22 02/23/22 02/23/22 18:59 06:59 18:59 Intake Total 711 Output Total 2800 1600 600 Balance -2089 -1600 -600 Intake: Oral 711 Output: Urine 2800 1600 600 Other: Voiding Method Toilet - Labs CBC & Chem 7: 02/22/22 05:35 02/23/22 03:14 Labs: Abnormal Lab Results - Last 24 Hours (Table) 02/22/22 02/22/22 02/22/22 Range/Units 09:32 09:32 11:45 PT (9.0-12.0) sec INR (<1.2) Glucose (74-99) mg/dL POC Glucose (mg/dL) (70-110) mg/dL Troponin I 0.060 H* 0.052 H* (0.000-0.034) ng/mL Procalcitonin 2.66 H (0.02-0.09) ng/mL Urine Protein (Negative) Urine Glucose (UA) (Negative) Urine Blood (Negative) Ur Leukocyte Esterase (Negative) Urine RBC (0-5) /hpf Urine WBC (0-5) /hpf Urine WBC Clumps (None) /hpf Urine Mucus (None) /hpf 02/22/22 02/22/22 02/22/22 Range/Units 12:35 17:38 17:40 PT (9.0-12.0) sec INR (<1.2) Glucose (74-99) mg/dL POC Glucose (mg/dL) 366 H 234 H (70-110) mg/dL Troponin I (0.000-0.034) ng/mL Procalcitonin (0.02-0.09) ng/mL Urine Protein 2+ H (Negative) Urine Glucose (UA) 4+ H (Negative) Urine Blood Large H (Negative) Ur Leukocyte Esterase Moderate H (Negative) Urine RBC >182 H (0-5) /hpf Urine WBC 8 H (0-5) /hpf Urine WBC Clumps Rare H (None) /hpf Urine Mucus Rare H (None) /hpf 02/22/22 02/23/22 02/23/22 Range/Units 20:13 03:14 03:14 PT (9.0-12.0) sec INR (<1.2) Glucose 227 H (74-99) mg/dL POC Glucose (mg/dL) 308 H (70-110) mg/dL Troponin I (0.000-0.034) ng/mL Procalcitonin 2.01 H (0.02-0.09) ng/mL Urine Protein (Negative) Urine Glucose (UA) (Negative) Urine Blood (Negative) Ur Leukocyte Esterase (Negative) Urine RBC (0-5) /hpf Urine WBC (0-5) /hpf Urine WBC Clumps (None) /hpf Urine Mucus (None) /hpf 02/23/22 02/23/22 Range/Units 03:14 07:07 PT 12.5 H (9.0-12.0) sec INR 1.2 H (<1.2) Glucose (74-99) mg/dL POC Glucose (mg/dL) 245 H (70-110) mg/dL Troponin I (0.000-0.034) ng/mL Procalcitonin (0.02-0.09) ng/mL Urine Protein (Negative) Urine Glucose (UA) (Negative) Urine Blood (Negative) Ur Leukocyte Esterase (Negative) Urine RBC (0-5) /hpf Urine WBC (0-5) /hpf Urine WBC Clumps (None) /hpf Urine Mucus (None) /hpf Microbiology - Last 24 Hours (Table) 02/20/22 10:35 Blood Culture Gram Stain - Final Blood Blood Culture - Final Staphylococcus epidermidis Coagulase Negative Staph 02/20/22 10:20 Blood Culture Gram Stain - Final Blood Blood Culture - Final Coagulase Negative Staph Coagulase Negative Staph#2
[2022-02-23] MEDS: VANCOMYCIN 1,500 MG in SODIUM CHLORIDE 0.9% 250 ML IVPB SCH (11:02)
[2022-02-23 11:45] LABS: Glucose,Whole Blood 291 mg/dL (70-110)
--- NOTE | 2022-02-23 11:47 | P.PN ---
Subjective Progress Note Date: 02/23/22 This is a very pleasant 61-year-old male patient who follows with Dr. Hagan as his primary care provider. He has a history of hypertension, hyperlipidemia, coronary artery disease with previous stent placement, atrial fibrillation with previous ablation, anticoagulated with warfarin, diabetes mellitus, former smoker. He was recently diagnosed with a 7 mm kidney stone at [facility] where he was residing at his [facility]. He was given [place] on Flomax and instructed to follow-up with Dr. Quiroz. He ended up presenting here to the emergency room on 02/20/2022 with ongoing pain and fever. Ultrasound of the kidneys revealed a left hydronephrosis but no evidence of stone. Computed tomog alysha scan of the abdomen revealed a moderate left-sided headache or ureteral nephrosis secondary to a 4.5 mm left ureteral at the left mid sacral level. Mild left renal edema and perinephric stranding. That same afternoon he did undergo cystoscopy with placement of a double-J catheter on the left by Dr. Crabtree. He did develop ongoing fevers. He developed increasing shortness of breath. Chest x-ray revealed evidence of pulmonary edema and we're consulted for the same. He is seen today on the regular medical floor. Currently sitting up in a chair at the bedside. Denies any significant left-sided chest discomfort. He was initially on 7 L high flow nasal cannula this morning. He's been tapered down to 5 and maintaining O2 saturation in the low 90s. Initial blood culture revealed no growth. Blood culture did reveal Staphylococcus epidermidis. White count 6.7. Hemoglobin 12.4. Platelets 79,000. INR 1.2. Sodium 132. Potassium 3.9. BUN 16. Creatinine 0.89. Glucose 233. Troponin 0.059, 0.060. ProBNP 1790. He received IV Lasix and is currently in a -1.2 L balance. He is breathing a bit easier today compared to yesterday. Current temperature 99.8. Hemodynamically stable. He's been initiated on vancomycin and ceftriaxone. Would also remains on IV Lasix 40 mg every 12 hours. The patient is seen today 02/23/2022 in follow-up on the regular medical floor. He is up ambulating in his room. He is awake and alert in no acute distress. He is doing quite a bit better today compared to yesterday. He is maintaining O2 saturation in the 90s on room air. He's been afebrile. Hemodynamically stable. Blood cultures are positive for Staphylococcus epidermidis. INR 1.2. Sodium 137. Potassium 3.5. BUN 19. Creatinine 0.89. Pro-calcitonin 2.01. He presented negative balance of 3.6 L. currently on Lasix 40 mg IV every 12 hours. He is continued on vancomycin and ceftriaxone. ID service is on the case. A cardiogram revealed preserved left ventricular systolic function. Normal RV pressures. Objective - Vital Signs Vital signs: Vital Signs Temp 98 F 02/23/22 07:38 Pulse 77 02/23/22 08:00 Resp 18 02/23/22 08:00 BP 168/84 02/23/22 07:38 Pulse Ox 93 L 02/23/22 07:38 FiO2 Intake & Output 02/22/22 02/23/22 02/23/22 18:59 06:59 18:59 Intake Total 711 Output Total 2800 1600 600 Balance -2088 Intake: Oral 711 Output: Urine 2800 1600 600 Other: Voiding Method Toilet Toilet Urinal - Exam GENERAL EXAM: Alert, very pleasant 61-year-old male patient, on room air, am bulating in the camacho, fairly comfortable in no apparent distress. HEAD: Normocephalic. EYES: Normal reaction of pupils, equal size. NOSE: Clear with pink turbinates. THROAT: No erythema or exudates. NECK: No masses, no JVD. CHEST: No chest wall deformity. LUNGS: Equal air entry with crackles in the bilateral bases. CVS: S1 and S2 normal with no audible murmur, regular rhythm. ABDOMEN: No hepatosplenomegaly, normal bowel sounds, no guarding or rigidity. SPINE: No scoliosis or deformity SKIN: No rashes CENTRAL NERVOUS SYSTEM: No focal deficits, tone is normal in all 4 extremities. EXTREMITIES: There is no peripheral edema. No clubbing, no cyanosis. Peripheral pulses are intact. - Labs CBC & Chem 7: 02/22/22 05:35 02/23/22 03:14 Labs: Abnormal Lab Results - Last 24 Hours (Table) 02/22/22 02/22/22 02/22/22 Range/Units 09:32 11:45 12:35 PT (9.0-12.0) sec INR (<1.2) Glucose (74-99) mg/dL POC Glucose (mg/dL) 366 H (70-110) mg/dL Troponin I 0.052 H* (0.000-0.034) ng/mL Procalcitonin 2.66 H (0.02-0.09) ng/mL Urine Protein (Negative) Urine Glucose (UA) (Negative) Urine Blood (Negative) Ur Leukocyte Esterase (Negative) Urine RBC (0-5) /hpf Urine WBC (0-5) /hpf Urine WBC Clumps (None) /hpf Urine Mucus (None) /hpf 02/22/22 02/22/22 02/22/22 Range/Units 17:38 17:40 20:13 PT (9.0-12.0) sec INR (<1.2) Glucose (74-99) mg/dL POC Glucose (mg/dL) 234 H 308 H (70-110) mg/dL Troponin I (0.000-0.034) ng/mL Procalcitonin (0.02-0.09) ng/mL Urine Protein 2+ H (Negative) Urine Glucose (UA) 4+ H (Negative) Urine Blood Large H (Negative) Ur Leukocyte Esterase Moderate H (Negative) Urine RBC >182 H (0-5) /hpf Urine WBC 8 H (0-5) /hpf Urine WBC Clumps Rare H (None) /hpf Urine Mucus Rare H (None) /hpf 02/23/22 02/23/22 02/23/22 Range/Units 03:14 03:14 03:14 PT 12.5 H (9.0-12.0) sec INR 1.2 H (<1.2) Glucose 227 H (74-99) mg/dL POC Glucose (mg/dL) (70-110) mg/dL Troponin I (0.000-0.034) ng/mL Procalcitonin 2.01 H (0.02-0.09) ng/mL Urine Protein (Negative) Urine Glucose (UA) (Negative) Urine Blood (Negative) Ur Leukocyte Esterase (Negative) Urine RBC (0-5) /hpf Urine WBC (0-5) /hpf Urine WBC Clumps (None) /hpf Urine Mucus (None) /hpf 02/23/22 Range/Units 07:07 PT (9.0-12.0) sec INR (<1.2) Glucose (74-99) mg/dL POC Glucose (mg/dL) 245 H (70-110) mg/dL Troponin I (0.000-0.034) ng/mL Procalcitonin (0.02-0.09) ng/mL Urine Protein (Negative) Urine Glucose (UA) (Negative) Urine Blood (Negative) Ur Leukocyte Esterase (Negative) Urine RBC (0-5) /hpf Urine WBC (0-5) /hpf Urine WBC Clumps (None) /hpf Urine Mucus (None) /hpf Microbiology - Last 24 Hours (Table) 02/20/22 10:35 Blood Culture Gram Stain - Final Blood Blood Culture - Final Staphylococcus epidermidis Coagulase Negative Staph 02/20/22 10:20 Blood Culture Gram Stain - Final Blood Blood Culture - Final Coagulase Negative Staph Coagulase Negative Staph#2 Assessment and Plan Assessment: Acute hypoxemic respiratory failure secondary to fluid volume overload, improved and on room air Left-sided flank pain secondary to nephrolithiasis, status post double-J catheter placement on 02/20/2022 Staphylococcus epidermidis bacteremia. Currently on vancomycin and ceftriaxone Febrile illness secondary to above, afebrile today 02/23/2022 History of coronary disease with previous stent placement History of atrial fibrillation with previous ablation, anticoagulated with warfarin, subtherapeutic Hypertension Hyperlipidemia Former smoker Plan: The patient was seen and evaluated Labs and medications reviewed Improved and on room air Decrease Lasix to daily Continue vancomycin and ceftriaxone for now Follow-up chest x-ray in a.m. Accurate I&O We will continue to follow I have personally seen and examined the patient, performed the documentation and the assessment and plan as written. Number of minutes spent on the visit: 10. I have personally seen and examined the patient and reviewed the documentation. I performed a joint evaluation with the nurse practitioner in this evaluation was done more than 20 minutes. I fully agree with the documentation above and the plan of care. Clinically improving, we will reduce her diuresis and the patient will be switched to Lasix daily, currently the patient on room air oxygen. Awaiting final recommendations from ID regarding outpatient antibiotic treatment and course and duration.
--- NOTE | 2022-02-23 16:51 | P.PN ---
Progress Note - Text Progress Note Date: 02/23/22 Chief Complaint: Flank pain This is a very pleasant 61-year-old patient follows with Dr. Hagan. Chronic stable medical conditions include CAD with stent, diabetes, hypertension, osteoarthritis, kidney stones, history of atrial fibrillation with ablation. Has continued on Coumadin. Patient was seen after he had his double-J stent placed today. at the bedside. 4 days ago patient started having left flank pain. Symptoms started getting worse. Or the weakness started having fever and chills. Decreased oral intake. Also some blood in the urine. Came in. Patient was diagnosed with a computed tomography scan with disseminated kidney stone admin clotted in [place]. He was discharged with Oxly and Flomax. He was instructed to follow up with Dr. Quiroz. Symptoms persisted decided to come in here. He today had a double-J stent placement after Richie because of sepsis. February 21: Patient also spiked a fever this morning metabolic less. Patient physician better. On IV ceftriaxone. Blood cultures positive for gram-positive cocci in clusters. Vancomycin added. Decreased appetite. Tired. February 22: I was called early this morning as patient became short of breath. Became hypoxic. 40 mg IV Lasix was ordered. Checks x-ray showed fluid overloa d. small bump in troponin. Cardiology and pulmonary was consulted. 2-D echo was ordered. Patient made good urine since then. Breathing better. Sitting up in a chair. Eating some breakfast. February 23: Breathing better. Some improvement in appetite. Repeat blood cultures pending. IV Lasix cutback. Kidney function better. Patient to increase activity. Active Medications Acetaminophen (Acetaminophen Tab 325 Mg Tab) 650 mg PO Q6HR PRN PRN Reason: Mild Pain or Fever > 100.5 Last Admin: 02/22/22 19:39 Dose: 650 mg Hydrocodone Bitart/Acetaminophen (Hydrocodone/Apap 5-325mg 1 Each Tab) 1 each PO Q4HR PRN PRN Reason: Moderate Pain Last Admin: 02/21/22 20:07 Dose: 1 each Amlodipine Besylate (Amlodipine 5 Mg Tab) 5 mg PO DAILY FAHAD Last Admin: 02/23/22 08:24 Dose: 5 mg Atorvastatin Calcium (Atorvastatin 80 Mg Tab) 80 mg PO HS FAHAD Last Admin: 02/22/22 19:39 Dose: 80 mg Calcium Carbonate/Glycine (Calcium Carbonate 500 Mg Chewable) 1,000 mg PO Q4HR PRN PRN Reason: Dyspepsia Last Admin: 02/21/22 22:59 Dose: 1,000 mg Dextrose/Water (Dextrose 50% Syringe 50 Ml) 25 ml IVP PER PROTOCOL PRN; Protocol PRN Reason: Hypoglycemia Dextrose/Water (Dextrose 50% Syringe 50 Ml) 50 ml IVP PER PROTOCOL PRN; Protocol PRN Reason: Hypoglycemia Furosemide (Furosemide 10 Mg/Ml 4 Ml Vial) 40 mg IV DAILY [facility] Vancomycin HCl 1,500 mg/ (Sodium Chloride) 250 mls @ 125 mls/hr IVPB Q16H [facility] Last Admin: 02/23/22 11:02 Dose: 125 mls/hr Ceftriaxone Sodium 2 gm/ (Sodium Chloride) 50 mls @ 100 mls/hr IVPB Q24HR [facility] Last Admin: 02/23/22 08:24 Dose: 100 mls/hr Insulin Aspart (Insulin Aspart (Novolog) 100 Unit/Ml Vial) 0 unit SQ AC-TID [facility]; Protocol Last Admin: 02/23/22 12:23 Dose: 9 unit Lactulose (Lactulose 20 Gm/30 Ml Cup) 20 gm PO DAILY PRN PRN Reason: Constipation Lorazepam (Lorazepam 0.5 Mg Tab) 0.5 mg PO Q6HR PRN PRN Reason: Anxiety Metoprolol Tartrate (Metoprolol Tartrate 50 Mg Tab) 50 mg PO BID [facility] Last Admin: 02/23/22 08:24 Dose: 50 mg Miscellaneous Information (Warfarin Per Pharmacy) 0 each MISCELLANE DIRECTED PRN PRN Reason: PER PROTOCOL Miscellaneous Information (Vancomycin Trough Due 1 Each Misc) 0 each MISCELLANE DIRECTED ONE Stop: 02/24/22 01:01 Naloxone HCl (Naloxone 0.4 Mg/Ml 1 Ml Vial) 0.2 mg IV Q2M PRN PRN Reason: Opioid Reversal Tamsulosin HCl (Tamsulosin 0.4 Mg Cap.Er.24h) 0.4 mg PO DAILY [facility] Last Admin: 02/23/22 08:24 Dose: 0.4 mg Temazepam (Temazepam 15 Mg Cap) 15 mg PO HS PRN PRN Reason: Insomnia Last Admin: 02/22/22 02:00 Dose: 15 mg Warfarin Sodium (Warfarin 10 Mg Tab) 10 mg PO ONCE@1800 ONE Stop: 02/23/22 18:01 Past medical history to include: Paroxysmal atrial fibrillation corrected with ablation. On Coumadin. CAD with stent, diabetes, hypertension, osteomyelitis, kidney stones Social history: Patient started smoking in 1975 DrClaudia 118 years ago. Normally has 2 alcoholic drinks a day. Patient takes [employer]. . Alcohol occasionally. Family history: Reviewed, noncontributory to presentation Physical examination: VITAL SIGNS: 98.9, 80, 18, 132/70, 93% room air GENERAL: Sitting of the edge of the bed, breathing better EYES: Pupils equal. Conjunctiva normal. HEENT: External appearance of nose and ears normal, oral cavity grossly normal. NECK: JVD not raised; masses not palpable. HEART: First and second heart sounds are normal; no edema. LUNGS: Respiratory rate increased; some right basilar crackles ABDOMEN: Soft, no tenderness, liver spleen not palpable, no masses palpable. PSYCH: Alert and oriented x3; mood and affect normal. MUSCULOSKELETAL:No Clubbing/cyanosis;muscles-grossly intact INVESTIGATIONS, reviewed in the clinical context: Blood culture [February 20]: Staphylococcus epidermidis, coagulase negative staph Chest x-ray film personally reviewed by ne-portable/pulmonary edema February 22: WBC 6.7 hemoglobin 12.4 crit with 79 sodium 132 potassium 3.9 creatinine 0.89 Troponin I 0.059, 0.060. ProBNP 1790 White count 15.5 hemoglobin 14.6 platelets 115 sodium 129 potassium 4.1 BUN 26 creatinine 1.6 to COVID 19: Not detected Computed tomography scan of the abdomen pelvis: Moderate left-sided high to hydronephrosis secondary to 4.5 mm left ureteral calculus at the left mid sacral level Assessment and plan: -Acute acute on chronic congestive heart exacerbation from diastolic dysfunction EF 55-60%: Some improvement IV Lasix. -Troponin leak from pulmonary edema with cardiac strain. Rule out CHF. No ACS -Acute severe sepsis from obstructive by low nephritis: Better IV ceftriaxone. IV fluids -Sepsis with positive blood cultures growing Staphylococcus epidermidis and coagulase-negative staph. This may be relevant given sepsis. IV vancomycin . Repeat blood culture. - Moderate left-sided high to hydronephrosis secondary to 4.5 mm left ureteral calculus at the left mid sacral level February 20: Left double-J stent stent placed by Dr. Quiroz. -Acute severe obstructive pyelo nephritis IV ceftriaxone 1 g every 12 -Acute kidney injury from ATN from sepsis: Better IV fluids. Follow renal function. Hold LAINE inhibitor -Paroxysmal atrial fibrillation. Prior history of ablation. Telemetry. On Coumadin -Coumadin monitoring Follow INR -CAD with a prior history of stent Lipitor -Essential hypertension Lopressor 50 mg twice a day, Norvasc 5 mg a day. Hold Zestril -Diabetes mellitus type 2, on oral hypoglycemic Hold metformin. Follow Accu-Cheks and sliding scale. Decrease IV Lasix to once daily. IV ceftriaxone IV vancomycin. Incentive spirometry. Increase activity. Pending cultures. Discussed with patient.
[2022-02-23 16:54] LABS: Glucose,Whole Blood 335 mg/dL (70-110)
[2022-02-23] MEDS ORDERED: WARFARIN 10 MG TAB PO ONE (18:00)
[2022-02-23] MEDS: ATORVASTATIN 80 MG TAB PO SCH (19:23)
[2022-02-23 20:53] LABS: Glucose,Whole Blood 274 mg/dL (70-110)
[2022-02-24] MEDS ORDERED: VANCOMYCIN TROUGH DUE 1 EACH MISC MISCELLANE ONE (01:00)
[2022-02-24 03:15] LABS: Basophils % (A) 1 %; Eosinophils # (A) 0.1 k/uL (0-0.7); Eosinophils % (A) 1 %; HCT 34.9 % (39.0-53.0); HGB 11.8 gm/dL (13.0-17.5); Lymphocytes # (A) 0.9 k/uL (1.0-4.8); Lymphocytes % (A) 17 %; MCH 31.4 pg (25.0-35.0); MCV 92.3 fL (80.0-100.0); Mean Platelet Volume 11.2; Monocytes # (A) 0.4 k/uL (0-1.0); Monocytes % (A) 8 %; Neutrophils # (A) 3.5 k/uL (1.3-7.7); Neutrophils % (A) 69 %; RBC 3.78 m/uL (4.30-5.90); RDW 12.2 % (11.5-15.5); WBC 5.1 k/uL (3.8-10.6)
[2022-02-24 03:20] LABS: Platelet Count 95 k/uL (150-450)
[2022-02-24 03:43] LABS: INR 1.3 (<1.2); Prothrombin Time 13.7 sec (9.0-12.0)
[2022-02-24] MEDS: VANCOMYCIN 1,500 MG in SODIUM CHLORIDE 0.9% 250 ML IVPB SCH (03:47)
[2022-02-24 03:52] LABS: African American GFR (CKD) >90 (>60 ml/min/1.73 sqM); Anion Gap 10 mmol/L; Blood Urea Nitrogen 21 mg/dL (9-20); Calcium 8.8 mg/dL (8.4-10.2); Carbon Dioxide 26 mmol/L (22-30); Chloride 102 mmol/L (98-107); Glucose 269 mg/dL (74-99); Non-African American GFR(CKD) >90 (>60 ml/min/1.73 sqM); Potassium 3.7 mmol/L (3.5-5.1); Sodium 138 mmol/L (137-145)
[2022-02-24 07:09] LABS: Glucose,Whole Blood 269 mg/dL (70-110)
[2022-02-24] MEDS: amLODIPine 5 MG TAB PO SCH (08:21)
[2022-02-24] MEDS: TAMSULOSIN 0.4 MG CAP.ER.24H PO SCH (08:21)
[2022-02-24] MEDS: METOPROLOL TARTRATE 50 MG TAB PO SCH (08:21)
[2022-02-24] MEDS: INSULIN ASPART (NovoLOG) 100 UNIT/ML VIAL SQ SCH ×3 (08:21→17:36)
--- NOTE | 2022-02-24 08:34 | P.PN ---
Subjective Progress Note Date: 02/23/22 Principal diagnosis: Urinary tract infection and bacteremia Patient is a 42-year-old female with recent left foot bunion surgery subsequently dehiscence of the wound on the dorsum aspect of the left foot and cellulitis failing outpatient oral Bactrim DS therapy. On today's evaluation that is 02/23/2022, the patient denies having any fever or any chills patient left foot pain and discomfort has decreased in intensity, no further drainage no chest pain shortness of breath or cough no abdominal pain no diarrhea Objective - Vital Signs Vital signs: Vital Signs Temp 98 F 02/23/22 07:38 Pulse 84 02/23/22 07:38 Resp 18 02/23/22 07:38 BP 168/84 02/23/22 07:38 Pulse Ox 93 L 02/23/22 07:38 FiO2 Intake & Output 02/22/22 02/23/22 02/23/22 18:59 06:59 18:59 Intake Total 711 Output Total 2800 1600 600 Balance -[id number] Intake: Oral 711 Output: Urine 2800 1600 600 Other: Voiding Method Toilet - Exam GENERAL DESCRIPTION: Middle-aged male up in the chair in no distress RESPIRATORY SYSTEM: Unlabored breathing , decreased breath sounds at bases HEART: S1 S2 regular rate and rhythm , ABDOMEN: Soft , no tenderness EXTREMITIES: No edema feet - Labs CBC & Chem 7: 02/24/22 02:31 02/24/22 02:31 Labs: Abnormal Lab Results - Last 24 Hours (Table) 02/22/22 02/22/22 02/22/22 Range/Units 09:32 11:45 12:35 PT (9.0-12.0) sec INR (<1.2) Glucose (74-99) mg/dL POC Glucose (mg/dL) 366 H (70-110) mg/dL Troponin I 0.052 H* (0.000-0.034) ng/mL Procalcitonin 2.66 H (0.02-0.09) ng/mL Urine Protein (Negative) Urine Glucose (UA) (Negative) Urine Blood (Negative) Ur Leukocyte Esterase (Negative) Urine RBC (0-5) /hpf Urine WBC (0-5) /hpf Urine WBC Clumps (None) /hpf Urine Mucus (None) /hpf 0802/22/22 02/22/22 Range/Units 17:38 17:40 20:13 PT (9.0-12.0) sec INR (<1.2) Glucose (74-99) mg/dL POC Glucose (mg/dL) 234 H 308 H (70-110) mg/dL Troponin I (0.000-0.034) ng/mL Procalcitonin (0.02-0.09) ng/mL Urine Protein 2+ H (Negative) Urine Glucose (UA) 4+ H (Negative) Urine Blood Large H (Negative) Ur Leukocyte Esterase Moderate H (Negative) Urine RBC >182 H (0-5) /hpf Urine WBC 8 H (0-5) /hpf Urine WBC Clumps Rare H (None) /hpf Urine Mucus Rare H (None) /hpf 02/23/22 02/23/22 02/23/22 Range/Units 03:14 03:14 03:14 PT 12.5 H (9.0-12.0) sec INR 1.2 H (<1.2) Glucose 227 H (74-99) mg/dL POC Glucose (mg/dL) (70-110) mg/dL Troponin I (0.000-0.034) ng/mL Procalcitonin 2.01 H (0.02-0.09) ng/mL Urine Protein (Negative) Urine Glucose (UA) (Negative) Urine Blood (Negative) Ur Leukocyte Esterase (Negative) Urine RBC (0-5) /hpf Urine WBC (0-5) /hpf Urine WBC Clumps (None) /hpf Urine Mucus (None) /hpf 02/23/22 Range/Units 07:07 PT (9.0-12.0) sec INR (<1.2) Glucose (74-99) mg/dL POC Glucose (mg/dL) 245 H (70-110) mg/dL Troponin I (0.000-0.034) ng/mL Procalcitonin (0.02-0.09) ng/mL Urine Protein (Negative) Urine Glucose (UA) (Negative) Urine Blood (Negative) Ur Leukocyte Esterase (Negative) Urine RBC (0-5) /hpf Urine WBC (0-5) /hpf Urine WBC Clumps (None) /hpf Urine Mucus (None) /hpf Microbiology - Last 24 Hours (Table) 02/20/22 10:35 Blood Culture Gram Stain - Final Blood Blood Culture - Final Staphylococcus epidermidis Coagulase Negative Staph 02/20/22 10:20 Blood Culture Gram Stain - Final Blood Blood Culture - Final Coagulase Negative Staph Coagulase Negative Staph#2 Assessment and Plan (1) Blood bacterial culture positive Current Visit: Yes Status: Acute Code(s): R78.81 - BACTEREMIA SNOMED Cod e(s): 3697867709988232 (2) Pyelonephritis of left kidney Current Visit: Yes Status: Acute Code(s): N12 - TUBULO-INTERSTITIAL NEPHRITIS, NOT SPCF ACUTE OR CHRONIC SNOMED Code(s): 24623247 Plan: 1patient presented to hospital with sepsis source likely complicated UTI in this patient who did have a left hydronephrosis requiring cystoscopy and stent placement initially UA was negative more likely because of the blocked kidney and not indicated of the status of the left kidney which is more likely infected and more likely from enteric gram-negative pathogen and gram-positive such as staph epi have not been excluded. 2positive blood culture with staph epi question possible skin contaminant versus related to his pyelonephritis. RN has been advised to call the lab to get the sensitivity on this pathogen 3blood cultures has been repeated repeat UA is positive cultures are pending 4patient to continue the vancomycin and Rocephin to 2 g daily while waiting for the repeated cultures to finalize. Time with Patient: Less than 30
--- NOTE | 2022-02-24 08:44 | XR ---
EXAMINATION TYPE: XR chest 1V portable DATE OF EXAM: 02/24/2022 COMPARISON: 02/22/2022 INDICATION: CHF TECHNIQUE: Single frontal view of the chest is obtained. FINDINGS: The heart size is normal. The pulmonary vasculature is somewhat prominent. Suspicious peripheral infiltrates are not evident. There is a small nodule within the periphery of th e right lower lung field. This was present 2012. IMPRESSION: 1. No acute pulmonary process. 2. Somewhat prominent pulmonary vascular markings may be related to some volume overload.
[2022-02-24] MEDS ORDERED: FUROSEMIDE 10 MG/ML 4 ML VIAL IV SCH (09:00)
--- NOTE | 2022-02-24 10:25 | P.PN ---
Subjective Progress Note Date: 02/24/22 HISTORY OF PRESENT ILLNESS: Patient is a pleasant 61-year-old male with history of CAD with prior PCI, diabetes mellitus type 2, hypertension, arthritis, kidney stones, persistent a trial fibrillation status post ablation, prior tobacco abuse and quit who presented initially to [facility] with flank pain and was diagnosed with UTI/pyelonephritis and obstructive kidney stone. Patient was evaluated by urology with a ureteral stent placed. He was noted to be septic and placed on antibiotics and has been feeling somewhat better in terms of improved appetite, decreased flank pain and nausea. He states he previously remotely seen Dr. Cain and had stenting years ago however then followed with [facility] and had an ablation by Dr. Wilkins and has been doing much better in terms of A. fib burden. He denies any chest pain or pressure. Initially had acute kidney injury and was given IV fluids. He developed more shortness breath overnight however denied any chest pain or pressure. Chest x-ray showed increased vascular congestion and was diagnosed with heart failure and placed on diuretics. He states he feels somewhat better this morning after receiving Lasix. Prior echo had shown EF 35-40% around the time of this ELISA however denies any history of cardiomyopathy that he knows of. No EKG currently on file however telemetry reveals normal sinus rhythm with controlled heart rates. 02/23 Patient seen and examined. Patient states he is feeling much better. Denies any chest pain or pressure. Still some shortness breath however predominantly improved. Has been receiving Lasix with good urine output. Creatinine stable at 0.9. Echocardiogram performed yesterday shows normal left ventricular ejection fraction 55-60% with mild valvular disease. 02/24/2022 Patient examined this might the bedside. Patient denies chest pain or pressure. He denies shortness of breath. Vital signs are stable. Blood pressure slightly high this morning with a systolic in the 150s. PHYSICAL EXAM: VITAL SIGNS: Reviewed. GENERAL: Well-developed in no acute distress. NECK: Supple. No JVD or thyromegaly LUNGS: Respirations even and unlabored. Lungs essentially clear to auscultation bilaterally. HEART: Regular rate and rhythm. S1 and S2 heard. EXTREMITIES: Normal range of motion. No clubbing or cyanosis. Peripheral pulses intact. No lower extremity edema ASSESSMENT: 1. Acute on chronic diastolic heart failure 2. Mild troponin elevation, type II mechanism related to sepsis. Do not s uspect acute coronary syndrome 3. History of CAD status post PCI 4. Persistent atrial fibrillation status post ablation, currently sinus rhythm 5. Hypertension mildly elevated 6. Acute kidney injury improved 7. Hyponatremia likely some component of volume overload 8. Appears tobacco abuse 9. Sepsis, pyelonephritis status post ureteral stent 10. Thrombocytopenia 11. Mild alcohol use PLAN: Continue current cardiac medications Discontinue IV Lasix. Begin oral Lasix. Patient may be discharged home today from a cardiac stand point with close outpatient follow-up. Nurse practitioner note has been reviewed by physician. Signing provider agrees with the documented findings, assessment, and plan of care. Objective - Vital Signs Vital signs: Vital Signs Temp 98.7 F 02/24/22 07:46 Pulse 77 02/24/22 07:46 Resp 18 02/24/22 07:46 BP 157/75 02/24/22 07:46 Pulse Ox 95 02/24/22 07:46 FiO2 Intake & Output 02/23/22 02/24/22 02/24/22 18:59 06:59 18:59 Intake Total 480 240 Output Total 602 100 300 Balance -122 -100 -60 Weight 97.522 kg Intake: Oral 480 240 Output: Urine 602 100 300 Other: Voiding Method Toilet Toilet Urinal Urinal # Voids 2 2 - Labs CBC & Chem 7: 02/24/22 02:31 02/24/22 02:31 Labs: Abnormal Lab Results - Last 24 Hours (Table) 02/23/22 02/23/22 02/23/22 Range/Units 11:44 16:52 20:51 RBC (4.30-5.90) m/uL Hgb (13.0-17.5) gm/dL Hct (39.0-53.0) % Plt Count (150-450) k/uL Lymphocytes # (1.0-4.8) k/uL PT (9.0-12.0) sec INR (<1.2) BUN (9-20) mg/dL Glucose (74-99) mg/dL POC Glucose (mg/dL) 291 H 335 H 274 H (70-110) mg/dL 02/24/22 02/24/22 02/24/22 Range/Units 02:31 02:31 02:31 RBC 3.78 L (4.30-5.90) m/uL Hgb 11.8 L (13.0-17.5) gm/dL Hct 34.9 L (39.0-53.0) % Plt Count 95 L (150-450) k/uL Lymphocytes # 0.9 L (1.0-4.8) k/uL PT 13.7 H (9.0-12.0) sec INR 1.3 H (<1.2) BUN 21 H (9-20) mg/dL Glucose 269 H (74-99) mg/dL POC Glucose (mg/dL) (70-110) mg/dL 02/24/22 Range/Units 06:58 RBC (4.30-5.90) m/uL Hgb (13.0-17.5) gm/dL Hct (39.0-53.0) % Plt Count (150-450) k/uL Lymphocytes # (1.0-4.8) k/uL PT (9.0-12.0) sec INR (<1.2) BUN (9-20) mg/dL Glucose (74-99) mg/dL POC Glucose (mg/dL) 269 H (70-110) mg/dL Microbiology - Last 24 Hours (Table) 02/22/22 16:11 Blood Culture - Preliminary Blood No Growth after 24 hours 02/22/22 16:00 Blood Culture - Preliminary Blood No Growth after 24 hours
[2022-02-24 11:40] LABS: Glucose,Whole Blood 359 mg/dL (70-110)
[2022-02-24] MEDS ORDERED: VANCOMYCIN 1,500 MG in SODIUM CHLORIDE 0.9% 250 ML IVPB SCH (12:00)
[2022-02-24 14:50] VITALS: BP 156/75; PULSE 71; TEMP 98.1
--- NOTE | 2022-02-24 16:18 | P.PN ---
Subjective Progress Note Date: 02/24/22 Principal diagnosis: Urinary tract infection and bacteremia Patient is a 61 year male presented to hospital with left flank pain has been diagnosed with a complicated UTI in this patient status post cystoscopy and left ureter stent placement. On today's evaluation that is 02/24/2022 the patient is afebrile, the patient left flank pain has improved, the patient denies having any chest pain or shortness of breath or cough , the patient denies nausea no vomiting and no diarrhea, patient is feeling better and wants to go home Objective - Vital Signs Vital signs: Vital Signs Temp 98.7 F 02/24/22 07:46 Pulse 76 02/24/22 08:21 Resp 18 02/24/22 08:21 BP 157/75 02/24/22 07:46 Pulse Ox 95 02/24/22 07:46 FiO2 Intake & Output 02/23/22 02/24/22 02/24/22 18:59 06:59 18:59 Intake Total 480 240 Output Total 602 100 300 Balance -122 -100 -60 Weight 97.522 kg Intake: Oral 480 240 Output: Urine 602 100 300 Other: Voiding Method Toilet Toilet Toilet Urinal Urinal Urinal # Voids 2 2 - Exam GENERAL DESCRIPTION: Middle-aged male up in the chair in no distress RESPIRATORY SYSTEM: Unlabored breathing , decreased breath sounds at bases HEART: S1 S2 regular rate and rhythm , ABDOMEN: Soft , no tenderness EXTREMITIES: No edema feet - Labs CBC & Chem 7: 02/24/22 02:31 02/24/22 02:31 Labs: Abnormal Lab Results - Last 24 Hours (Table) 02/23/22 02/23/22 02/24/22 Range/Units 16:52 20:51 02:31 RBC (4.30-5.90) m/uL Hgb (13.0-17.5) gm/dL Hct (39.0-53.0) % Plt Count (150-450) k/uL Lymphocytes # (1.0-4.8) k/uL PT 13.7 H (9.0-12.0) sec INR 1.3 H (<1.2) BUN (9-20) mg/dL Glucose (74-99) mg/dL POC Glucose (mg/dL) 335 H 274 H (70-110) mg/dL 02/24/22 02/24/22 02/24/22 Range/Units 02:31 02:31 06:58 RBC 3.78 L (4.30-5.90) m/uL Hgb 11.8 L (13.0-17.5) gm/dL Hct 34.9 L (39.0-53.0) % Plt Count 95 L (150-450) k/uL Lymphocytes # 0.9 L (1.0-4.8) k/uL PT (9.0-12.0) sec INR (<1.2) BUN 21 H (9-20) mg/dL Glucose 269 H (74-99) mg/dL POC Glucose (mg/dL) 269 H (70-110) mg/dL 02/24/22 Range/Units 11:37 RBC (4.30-5.90) m/uL Hgb (13.0-17.5) gm/dL Hct (39.0-53.0) % Plt Count (150-450) k/uL Lymphocytes # (1.0-4.8) k/uL PT (9.0-12.0) sec INR (<1.2) BUN (9-20) mg/dL Glucose (74-99) mg/dL POC Glucose (mg/dL) 359 H (70-110) mg/dL Microbiology - Last 24 Hours (Table) 02/22/22 16:11 Blood Culture - Preliminary Blood No Growth after 24 hours 02/22/22 16:00 Blood Culture - Preliminary Blood No Growth after 24 hours Assessment and Plan (1) Blood bacterial culture positive Current Visit: Yes Status: Acute Code(s): R78.81 - BACTEREMIA SNOMED Cod e(s): [id number] (2) Pyelonephritis of left kidney Current Visit: Yes Status: Acute Code(s): N12 - TUBULO-INTERSTITIAL NEPHRITIS, NOT SPCF ACUTE OR CHRONIC SNOMED Code(s): 06590768 Plan: 1patient presented to hospital with sepsis source likely complicated UTI in this patient who did have a left hydronephrosis requiring cystoscopy and stent placement initially UA was negative more likely because of the blocked kidney and not indicated of the status of the left kidney which is more likely infected and more likely from enteric gram-negative pathogen and gram-positive such as staph epi have not been excluded. 2positive blood culture with staph epi question possible skin contaminant versus related to his pyelonephritis. RN has been advised to call the lab to get the sensitivity on this pathogen, however that has not been completed 3blood cultures has been repeated repeat UA is positive however culture has been negative 4patient seemed to have shown clinical improvement we will continue with Rocephin however discontinue vancomycin and plan to finish therapy with oral Ceftin prescription sent to the pharmacy Time with Patient: Less than 30
[2022-02-24 17:04] LABS: Glucose,Whole Blood 329 mg/dL (70-110)
[2022-02-24] MEDS ORDERED: WARFARIN 10 MG TAB PO ONE (18:00)
--- NOTE | 2022-02-24 18:40 | P.DS ---
Providers Date of admission: 02/20/22 12:25 Expected date of discharge: 02/24/22 Attending physician: Shaka Godoy Consults: 02/20/22 12:34 Consult Physician Routine Consulting Provider: Adi Crabtree Consult Reason/Comments: JORGE L, pyelonephritis Do you want consulting provider notified?: Already Contacted 02/22/22 06:31 Consult Physician Stat Consulting Provider: Seamus Tsang Consult Reason/Comments: positive trop Do you want consulting provider notified?: Yes 02/22/22 06:35 Consult Physician Stat Consulting Provider: Isaias Melgar Consult Reason/Comments: pulmonary edema Do you want consulting provider notified?: Yes 02/22/22 15:46 Consult Physician Routine Consulting Provider: Alexia Waters Consult Reason/Comments: Positive blood culture Do you want consulting provider notified?: Yes Primary care physician: [facility] Course: Chief Complaint: Flank pain This is a very pleasant 61-year-old patient follows with Dr. Hagan. Chronic stable medical conditions include CAD with stent, diabetes, hypertension, osteoarthritis, kidney stones, history of atrial fibrillation with ablation. Has continued on Coumadin. Patient was seen after he had his double-J stent placed today. at the bedside. 4 days ago patient started having left flank pain. Symptoms started getting worse. Or the weakness started having fever and chills. Decreased oral intake. Also some blood in the urine. Came in. Patient was diagnosed with a computed tomography scan with disseminated kidney stone admin clotted in [place]. He was discharged with Montegut and Flomax. He was instructed to follow up with Dr. Quiroz. Symptoms persisted decided to come in here. He today had a double-J stent placement after Richie because of sepsis. February 21: Patient also spiked a fever this morning metabolic less. Patient physician better. On IV ceftriaxone. Blood cultures positive for gram-positive cocci in clusters. Vancomycin added. Decreased appetite. Tired. February 22: I was called early this morning as patient became short of breath. Became hypoxic. 40 mg IV Lasix was ordered. Checks x-ray showed fluid overload. small bump in troponin. Cardiology and pulmonary was consulted. 2-D echo was ordered. Patient made good urine since then. Breathing better. Sitting up in a chair. Eating some breakfast. February 23: Breathing better. Some improvement in appetite. Repeat blood cultures pending. IV Lasix cutback. Kidney function better. Patient to increase activity. February 24: Doing well. Breathing is well. Changed to by mouth Lasix. Eating well. Repeat blood cultures negative. Discussed at length with the patient. Cleared by ID and cardiology for discharge. He'll complete a course of Ceftin. Questions answered Discussion and discharge planning more than 35 minutes Past medical history to include: Paroxysmal atrial fibrillation corrected with ablation. On Coumadin. CAD with stent, diabetes, hypertension, osteomyelitis, kidney stones Social history: Patient started smoking in 1975 DrClaudia 118 years ago. Normally has 2 alcoholic drinks a day. Patient takes Nutricate. . Alcohol occasionally. Family history: Reviewed, noncontributory to presentation Physical examination: VITAL SIGNS: 98.1, 71, 18, 156.75, 95% room air GENERAL: Sitting up, comfortable EYES: Pupils equal. Conjunctiva normal. HEENT: External appearance of nose and ears normal, oral cavity grossly normal. NECK: JVD not raised; masses not palpable. HEART: First and second heart sounds are normal; no edema. LUNGS: Respiratory rate normal; lungs clear ABDOMEN: Soft, no tenderness, liver spleen not palpable, no masses palpable. PSYCH: Alert and oriented x3; mood and affect normal. MUSCULOSKELETAL:No Clubbing/cyanosis;muscles-grossly intact INVESTIGATIONS, reviewed in the clinical context: February 24: Obesity 5.1 platelets 95 progression 3.7 creatinine 0.87 Blood culture [February 20]: Staphylococcus epidermidis, coagulase negative staph Chest x-ray film personally reviewed by me-portable/pulmonary edema February 22: WBC 6.7 hemoglobin 12.4 crit with 79 sodium 132 potassium 3.9 creatinine 0.89 Troponin I 0.059, 0.060. ProBNP 1790 White count 15.5 hemoglobin 14.6 platelets 115 sodium 129 potassium 4.1 BUN 26 creatinine 1.6 to COVID 19: Not detected Computed tomography scan of the abdomen pelvis: Moderate left-sided high to hydronephrosis secondary to 4.5 mm left ureteral calculus at the left mid sacral level Assessment and plan: -Acute acute on chronic congestive heart exacerbation from diastolic dysfunction EF 55-60%: Better Lasix 20 mg daily -Troponin leak from pulmonary edema with cardiac strain. Rule out CHF. No ACS -Acute severe sepsis from obstructive by low nephritis: Better IV ceftriaxone. IV fluids. Ceftin 500 mg twice a day for 10 days -Sepsis with positive blood cultures growing Staphylococcus epidermidis and coagulase-negative staph. This may be relevant given sepsis. IV vancomycin . Repeat blood culture negative. Complete 10 days of Ceftin - Moderate left-sided high to hydronephrosis secondary to 4.5 mm left ureteral calculus at the left mid sacral level February 20: Left double-J stent stent placed by Dr. Quiroz. -Acute severe obstructive pyelo nephritis: Improved IV ceftriaxone 1 g every 12 -Acute kidney injury from ATN from sepsis: Improved IV fluids. Follow renal function. -Paroxysmal atrial fibrillation. Prior history of ablation. Telemetry. On Coumadin -Coumadin monitoring Follow INR -CAD with a prior history of stent Lipitor -Essential hypertension Lopressor 50 mg twice a day, Norvasc 5 mg a day. Zestril -Diabetes mellitus type 2, on oral hypoglycemic Resume metformin. Follow Accu-Cheks and sliding scale. Disposition: Home Plan - Discharge Summary Discharge Rx Participant: No New Discharge Prescriptions: New Acetaminophen Tab [Tylenol] 650 mg PO Q6HR PRN tab PRN Reason: Mild Pain Or Fever > 100.5 cefUROXime axetiL [Ceftin] 500 mg PO BID 10 Days #20 tab Furosemide [Lasix] 20 mg PO DAILY #30 tab Continue amLODIPine [Norvasc] 5 mg PO DAILY lisinopriL [Zestril] 20 mg PO DAILY HYDROcodone/APAP 5-325MG [Montegut 5-325] 1 tab PO Q8H PRN PRN Reason: Pain metFORMIN HCL 1,000 mg PO BID Tamsulosin [Flomax] 0.4 mg PO DAILY Atorvastatin [Lipitor] 80 mg PO HS Warfarin [Coumadin] 1 mg PO DAILY Warfarin Sodium 6 mg PO DAILY Metoprolol Tartrate [Lopressor] 50 mg PO BID Discontinued Ketorolac Tromethamine 10 mg PO Q8H PRN PRN Reason: Pain No Action Eleno's Leg Cramps 1 tab PO HS Discharge Medication List amLODIPine [Norvasc] 5 mg PO DAILY 11/10/16 [History] lisinopriL [Zestril] 20 mg PO DAILY 11/10/16 [History] Atorvastatin [Lipitor] 80 mg PO HS 02/20/22 [History] HYDROcodone/APAP 5-325MG [Montegut 5-325] 1 tab PO Q8H PRN 02/20/22 [History] Eleno's Leg Cramps 1 tab PO HS 02/20/22 [History] Metoprolol Tartrate [Lopressor] 50 mg PO BID 02/20/22 [History] Tamsulosin [Flomax] 0.4 mg PO DAILY 02/20/22 [History] Warfarin Sodium 6 mg PO DAILY 02/20/22 [History] Warfarin [Coumadin] 1 mg PO DAILY 02/20/22 [History] metFORMIN HCL 1,000 mg PO BID 02/20/22 [History] Acetaminophen Tab [Tylenol] 650 mg PO Q6HR PRN tab 02/24/22 [Rx] Furosemide [Lasix] 20 mg PO DAILY #30 tab 02/24/22 [Rx] cefUROXime axetiL [Ceftin] 500 mg PO BID 10 Days #20 tab 02/24/22 [Rx] Follow up Appointment(s)/Referral(s): Mateo Tucker DO [STAFF PHYSICIAN] - 4 Weeks Hoang Hagan MD [Primary Care Provider] - 1-2 days [facility], [REFERRING] - As Needed (COVERED AT 100%) Alexia Waters MD [STAFF PHYSICIAN] - 1 Week Adi Crabtree MD [STAFF PHYSICIAN] - 1 Week Patient Instructions/Handouts: Acute Kidney Injury (DC), Hydronephrosis (DC) Discharge Disposition: HOME SELF-CARE
[2022-02-25] MEDS ORDERED: FUROSEMIDE 20 MG TAB PO SCH (09:00)
== END 2022-02-24 17:40 | disposition home or self-care (01) | DRG 853 ==
LOC: EC 10:03 → 5NMEDONC 12:25 → 6NMEDSUR 17:16
PROVIDERS: ADMIT Hospitalist; ATTEND Hospitalist
PROC: 0T778DZ Dilation of Left Ureter with Intraluminal Device, Via Natural or Artificial Opening Endoscopic (ICD-10-PCS; principal; 2022-02-20 16:07)
PROC: 0T7D7ZZ Dilation of Urethra, Via Natural or Artificial Opening (ICD-10-PCS; principal; 2022-02-20 16:07)
DX: A41.1 Sepsis due to other specified staphylococcus (principal); I21.A1 Myocardial infarction type 2; N17.0 Acute kidney failure with tubular necrosis; I50.33 Acute on chronic diastolic (congestive) heart failure; J96.01 Acute respiratory failure with hypoxia; I48.19 Other persistent atrial fibrillation; E87.1 Hypo-osmolality and hyponatremia; N13.6 Pyonephrosis; D69.6 Thrombocytopenia, unspecified; I11.0 Hypertensive heart disease with heart failure; R65.20 Severe sepsis without septic shock; E11.9 Type 2 diabetes mellitus without complications; Z20.822 Contact with and (suspected) exposure to COVID-19; E78.5 Hyperlipidemia, unspecified; N35.912 Unspecified bulbous urethral stricture, male; I25.10 Atherosclerotic heart disease of native coronary artery without angina pectoris; M19.90 Unspecified osteoarthritis, unspecified site; K59.00 Constipation, unspecified; F41.9 Anxiety disorder, unspecified; G47.00 Insomnia, unspecified; T81.31XD Disruption of external operation (surgical) wound, not elsewhere classified, subsequent encounter; Z79.84 Long term (current) use of oral hypoglycemic drugs; Z79.01 Long term (current) use of anticoagulants; Z79.899 Other long term (current) drug therapy; Z87.442 Personal history of urinary calculi; Z87.891 Personal history of nicotine dependence; Z95.5 Presence of coronary angioplasty implant and graft; Z82.49 Family history of ischemic heart disease and other diseases of the circulatory system
CPT/HCPCS: 36415; 71045; 74018; 74176; 76770; 80048; 80053; 80202; 81001; 83605; 83880; 84145; 84484; 85025; 85610; 87040; 87077; 87186; 87635; 93306; 94640; 94760; 96361; 96374; 96375; 99285

== ENCOUNTER → 2022-03-02 | Outpatient (CLI) | payer BC ==
[2022-03-02 17:53] LABS: HCT 38.9 % (39.6-50.0); MCH 31.1 pg (27.0-32.0); MCHC 33.4 g/dL (32.0-37.0); MCV 93.1 fL (80.0-97.0); Mean Platelet Volume 10.5 fL (9.5-12.2); NRBC Per 100 WBC 0 /100 WBCS (0.0-0.0); Platelet Count 359 X 10*3/uL (140-440); RBC 4.18 X 10*6/uL (4.40-5.60); RDW 12.4 % (11.5-14.5); WBC 8.18 X 10*3/uL (4.50-10.00)
[2022-03-02 18:58] LABS: African American GFR (CKD) 92.4 (60.0-200.0); Anion Gap 9.6 mmol/L (10.00-18.00); BUN/Creat Ratio 15.5 Ratio (12.00-20.00); Blood Urea Nitrogen 15.5 mg/dL (9.0-27.0); Carbon Dioxide 27.4 mmol/L (20.0-27.5); Non-African American GFR(CKD) 79.7 (60.0-200.0); Potassium 5.2 mmol/L (3.5-5.5)
[2022-03-02 19:51] LABS: Basophils # (M) 0.08 X 10*3/uL (0.00-0.10); Eosinophils # (M) 0.08 X 10*3/uL (0.04-0.35); Lymphocytes # (M) 1.39 X 10*3/uL (0.90-5.00); Metamyelocytes % 1 % (0-0); Monocytes # (M) 0.33 X 10*3/uL (0.20-1.00); Myelocytes % 2 % (0-0); Neutrophils # (M) 6.05 X 10*3/uL (2.00-8.90); Neutrophils % (M) 74 %; RBC Morphology NORMAL
[2022-03-02 23:40] LABS: Appearance,Urine Clear (Clear); Bilirubin,Urine Negative (Negative); Blood,Urine Large (Negative); Color,Urine Yellow (Yellow); Ketones,Urine Negative (Negative); Nitrite,Urine Negative (Negative); Specific Gravity,Urine 1.027 (1.001-1.030); Urobilinogen,Urine 0.2 (0.2,1.0)
[2022-03-02 23:50] LABS: Bacteria,Urine None Seen /HPF (None Seen)
== END | disposition home or self-care (01) ==
LOC: LABPAT 10:54
PROVIDERS: ATTEND Urology
DX: Z01.812 Encounter for preprocedural laboratory examination (principal); N20.1 Calculus of ureter; R31.29 Other microscopic hematuria
CPT/HCPCS: 80048; 81001; 85025; 87086

== ENCOUNTER 2022-03-07 10:45 | Day surgery (SDC) | payer BC ==
[2022-03-06 09:09] VITALS: BMI 29.2
--- NOTE | 2022-03-06 20:29 | P.GSHP ---
History of Present Illness H&P Date: 03/06/22 61 yo male was recently in [facility] with a 7mm distal left ureteral stone with obstruction and pyonephrosis. He underwent an emergent stent placement as well as antibiotics to treat the utis with sepsis. He has recovered and now comes for a left ureteroscopy with stone and stent removal. - Constitutional Constitutional: Denies chills, Denies fever - EENT Eyes: denies blurred vision, denies pain Ears, nose, mouth and throat: Denies headache, Denies sore throat - Cardiovascular Cardiovascular: Denies chest pain, Denies shortness of breath - Respiratory Respiratory: Denies cough, Denies 7 - Gastrointestinal Gastrointestinal: Denies abdominal pain, Denies diarrhea, Denies nausea, Denies vomiting - Genitourinary (Female) Genitourinary: Denies dysuria, Denies hematuria - Genitourinary (Male) Genitourinary: Denies dysuria, Denies hematuria - Musculoskeletal Musculoskeletal: Denies myalgias - Integumentary Integumentary: Denies pruritus, Denies rash - Neurological Neurological: Denies numbness, Denies weakness - Psychiatric Psychiatric: Denies anxiety, Denies depression - Endocrine Endocrine: Denies fatigue, Denies weight change Past Medical History Past Medical History: Atrial Fibrillation, Coronary Artery Disease (CAD), Diabetes Mellitus, Hypertension, Osteoarthritis (OA) Additional Past Medical History / Comment(s): kidney stones History of Any Multi-Drug Resistant Organisms: None Reported Past Surgical History: Heart Catheterization With Stent Additional Past Surgical History / Comment(s): Colonoscopy, LITHOTRIPSY Past Anesthesia/Blood Transfusion Reactions: No Reported Reaction Date of Last Stent Placement:: 2012 Past Psychological History: No Psychological Hx Reported Smoking Status: Former smoker Past Alcohol Use History: None Reported Past Drug Use History: None Reported - Past Family History Mother Family Medical History: No Reported History Father Family Medical History: Coronary Artery Disease (CAD) Medications and Allergies Home Medications Medication Instructions Recorded Confirmed Type amLODIPine [Norvasc] 5 mg PO DAILY 11/10/16 03/06/22 History lisinopriL [Zestril] 20 mg PO DAILY 11/10/16 03/06/22 History Atorvastatin [Lipitor] 80 mg PO HS 02/20/22 03/06/22 History HYDROcodone/APAP 5-325MG [[place] 1 tab PO Q8H PRN 02/20/22 03/06/22 History 5-325] Eleno's Leg Cramps 1 tab PO HS 02/20/22 03/06/22 History Metoprolol Tartrate [Lopressor] 50 mg PO BID 02/20/22 03/06/22 History Tamsulosin [Flomax] 0.4 mg PO DAILY 02/20/22 03/06/22 History Warfarin Sodium 6 mg PO DAILY 02/20/22 03/06/22 History Warfarin [Coumadin] 1 mg PO DAILY 02/20/22 03/06/22 History metFORMIN HCL 1,000 mg PO BID 02/20/22 03/06/22 History Acetaminophen Tab [Tylenol] 650 mg PO Q6HR PRN tab 02/24/22 03/06/22 Rx Furosemide [Lasix] 20 mg PO DAILY #30 tab 02/24/22 03/06/22 Rx cefUROXime axetiL [Ceftin] 500 mg PO BID 10 Days #20 tab 02/24/22 03/06/22 Rx Allergies Allergy/AdvReac Type Severity Reaction Status Date / Time No Known Allergies Allergy Verified 03/06/22 08:58 Surgical - Exam - General well developed, well nourished, no distress - Eyes normal ocular movement, no icteric - ENT no hearing loss, no congestion - Neck no masses, trachea midline - Respiratory normal respiratory effort, clear to auscultation - Abdomen Abdomen: soft, non tender, no guarding, no rigid, no rebound - Integumentary no rash, no abnormal pigmentation - Neurologic no disoriented, no combative - Psychiatric oriented to time, oriented to person, oriented to place, speech is normal, memory intact Assessment and Plan Assessment: Impressipon: Left ureteral stone. Plan: left ureteroscopy with laser lithotripsy , stone and stent removal
[~2022-03-07 10:45] MED LIST changes: +AMPICILLIN 1,000 MG in SODIUM CHLORIDE 0.9% 50 ML IVPB PRN; +DEXAMETHASONE SOD PHOSPHATE 4 MG/ML 1 ML VIAL IV ONE; +GENTAMICIN 120 MG in SODIUM CHLORIDE 0.9% 100 ML IVPB PRN; +HYDROmorphone 0.5 MG/0.5 ML SYRINGE IVP PRN; +LIDOCAINE 1% (10MG/ML) FOR IV START INTRADERMA PRN; -LIDOCAINE 1% 20 ML VIAL (10MG/ML) FOR IV START INTRADERMA PRN; +ONDANSETRON 4 MG/2 ML VIAL IVP ONE; -SODIUM CHLORIDE 0.9% 1,000 ML IV SCH
--- NOTE | 2022-03-07 11:13 | XR ---
EXAMINATION TYPE: XR KUB DATE OF EXAM: 03/07/2022 HISTORY: Pain Comparison: None.Single KUB is submitted for interpretation. Findings: Right renal calculi: 3 mm calculus right kidney. Right ureteral calculi: None Visualized. Left renal calculi: None Visualized. Left ureteral calculi: Ureteral stent in place Pelvic calcifications: None Visualized. Bowel gas pattern is unremarkable. No free air. No mass effects. IMPRESSION: 1. As above
[2022-03-07 11:49] LABS: Glucose,Whole Blood 230 mg/dL (70-110)
[2022-03-07] MEDS ORDERED: ONDANSETRON 4 MG/2 ML VIAL ONE (11:56)
[2022-03-07] MEDS ORDERED: INSULIN ASPART (NovoLOG) 100 UNIT/ML VIAL SQ ONE (11:59)
[2022-03-07] MEDS ORDERED: MIDAZOLAM 2 MG/2 ML VIAL ONE (12:51)
[2022-03-07] MEDS ORDERED: fentaNYL (PF) 50 MCG/ML 2 ML AMP ONE (12:51)
[2022-03-07] MEDS ORDERED: LIDOCAINE 2% INJ 20 MG/ML (2 ML VIAL) ONE (12:51)
[2022-03-07] MEDS ORDERED: PROPOFOL 10 MG/ML 20 ML VIAL IV ONE (12:51)
[2022-03-07] MEDS ORDERED: SUCCINYLCHOLINE CHLORIDE 200 MG/10 ML VIAL IV ONE (12:51)
[2022-03-07] MEDS ORDERED: GENTAMICIN IV ONE ×2 (13:15)
[2022-03-07] MEDS ORDERED: SODIUM CHLORIDE 0.9% IV ONE ×2 (13:15)
--- NOTE | 2022-03-07 13:41 | P.OP ---
Date of Procedure: 03/07/22 Preoperative Diagnosis: Left ureteral stone, history of urinary tract infection with sepsis, pyonephrosis left Postoperative Diagnosis: Same Procedure(s) Performed: Cystoscopy, removal double-J catheter left, left ureteroscopy laser lithotripsy and stone basketing Anesthesia: ANGELIA Surgeon: Adi Crabtree Estimated Blood Loss (ml): 0 Pathology: other (Stone) Condition: stable Disposition: PACU Indications for Procedure: Patient is 61. He recently was in the hospital for an obstructing left ureteral stone, urinary tract infection with sepsis, left pyelonephrosis. He is treated with a stent and antibiotics. Subsequent urine culture is clear. He now comes for stone and stent removal Description of Procedure: Patient brought to the operative suite. Given general anesthesia. Placed lithotomy position with sterile prep and drape. The 21-Japanese sheath and Foroblique lenses introduced in the urethra. The fossa was slightly tight. The rest the urethra is normal. The prostate shows minimal obstruction. The left stent is identified and removed. I then introduced a semirigid ureteroscope up the left ureter to the stone. With the 360 laser probe and 8 W of energy the stone was broken into tiny pieces the larger pieces which are basketed. The stone fragments are saved. The bladder is drained. The patient is awakened and returned recovery room good condition. A stent is not placed. The patient will be discharged home upon recovery and found the office in one week.
[2022-03-07 13:44] VITALS: TEMP 96.9
[2022-03-07 14:22] LABS: Glucose,Whole Blood 190 mg/dL (70-110)
[2022-03-07 14:24] VITALS: PULSE 60; RESP 16
--- NOTE | 2022-03-07 14:39 | FL ---
Fluoroscopy History: L URETERAL CALCULUS 1 second of fluoroscopic time and 2 films are submitted for L URETERAL CALCULUS .
[2022-03-07 14:40] VITALS: BP 126/74
== END 2022-03-07 15:03 | disposition home or self-care (01) ==
LOC: OR 10:45
PROVIDERS: ATTEND Urology
DX: N20.1 Calculus of ureter (principal); Z46.6 Encounter for fitting and adjustment of urinary device; N13.6 Pyonephrosis; I48.91 Unspecified atrial fibrillation; I25.10 Atherosclerotic heart disease of native coronary artery without angina pectoris; E11.9 Type 2 diabetes mellitus without complications; I10 Essential (primary) hypertension; M19.90 Unspecified osteoarthritis, unspecified site; Z87.891 Personal history of nicotine dependence; Z95.0 Presence of cardiac pacemaker; Z79.890 Hormone replacement therapy; Z79.899 Other long term (current) drug therapy; Z79.82 Long term (current) use of aspirin; Z79.84 Long term (current) use of oral hypoglycemic drugs
CPT/HCPCS: 52353; 82365; 74018; C1769; J2250; J0330; J1580; J2405; J3010; J0290; J2704; J2001

== ENCOUNTER 2024-01-29 08:17 | Day surgery (SDC) | payer MEDICARE, OTHER ==
[2024-01-29] MEDS ORDERED: BENZOCAINE SPRAY 1 CAN ONE (10:00)
[2024-01-29] MEDS ORDERED: SODIUM CHLORIDE 0.9% 1,000 ML BAG ONE (10:30)
[2024-01-29] MEDS ORDERED: PROPOFOL 10 MG/ML 20 ML VIAL IV ONE ×2 (10:37)
== END 2024-01-29 12:30 | disposition home or self-care (01) ==
LOC: OR 08:17
PROVIDERS: ATTEND Internal Medicine Interventional Cardiology
DX: I48.19 Other persistent atrial fibrillation (principal); I25.10 Atherosclerotic heart disease of native coronary artery without angina pectoris; I25.5 Ischemic cardiomyopathy; I10 Essential (primary) hypertension; E11.9 Type 2 diabetes mellitus without complications; E78.00 Pure hypercholesterolemia, unspecified; F17.200 Nicotine dependence, unspecified, uncomplicated; Z95.5 Presence of coronary angioplasty implant and graft; Z82.49 Family history of ischemic heart disease and other diseases of the circulatory system; Z79.82 Long term (current) use of aspirin; Z79.01 Long term (current) use of anticoagulants; Z79.899 Other long term (current) drug therapy; Z79.84 Long term (current) use of oral hypoglycemic drugs
CPT/HCPCS: 80048; 85610; 92960; 93312; 93320; 93325

== ENCOUNTER → 2024-07-08 | Outpatient (CLI) | payer MEDICARE, OTHER ==
--- NOTE | 2024-07-08 08:52 | US ---
EXAMINATION TYPE: US abdomen limited DATE OF EXAM: 07/08/2024 COMPARISON: NONE CLINICAL INDICATION: Male, 64 years old with history of R74.8 ELEVATED LIVER ENZYMES; Hx HTN and DM; Patient denies any other signs, symptoms, or relevant history TECHNIQUE: Grayscale and color Doppler imaging of the right upper quadrant was performed. 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
== END | disposition home or self-care (01) ==
LOC: RADUSWWP 08:07
PROVIDERS: ATTEND Family Medicine
DX: R74.8 Abnormal levels of other serum enzymes (principal); I10 Essential (primary) hypertension; E11.9 Type 2 diabetes mellitus without complications
CPT/HCPCS: 76705